=== PATIENT | female | born 1940 | race Caucasian/White ===

== ENCOUNTER 2016-05-12 17:23 | Inpatient (IN) | payer OTHER ==
[2016-05-12 18:49] LABS: BASOPHIL 0.6 % (0-2.0); EOSINOPHIL 0.9 % (0-4.5); MCH 29.3 pg (25.7-33.7); MCHC 33.2 g/dl (32.0-36.0); MEAN CELL VOLUME 88.2 fl (80-96); MEAN PLT VOLUME 8.1 fl (7.5-11.1); NEUTROPHILS 60.1 % (42.8-82.8); PLATELET COUNT 210 K/MM3 (134-434); WHITE BLOOD COUNT 4.2 K/mm3 (4.0-10.0)
[2016-05-12] MEDS ORDERED: morphine CARPU-JECT 2 MG/1 ML DISP.SYRIN IVPUSH ONE (18:57)
[2016-05-12 18:58] LABS: URINE APPEARANCE SLCLOUDY; URINE BILIRUBIN NEGATIVE (NEGATIVE); URINE COLOR YELLOW; URINE GLUCOSE (UA) NEGATIVE (NEGATIVE); URINE KETONE TRACE (NEGATIVE); URINE LEUK ESTERASE NEGATIVE (NEGATIVE); URINE NITRITE NEGATIVE (NEGATIVE); URINE PROTEIN NEGATIVE (NEGATIVE); URINE UROBILINOGEN NEGATIVE E.U./dl (0.2-1.0)
[2016-05-12 19:00] LABS: INR 1.13 (0.82-1.09); PROTHROMBIN TIME (PATIENT) 12.5 SEC (9.98-11.88); URINE BLOOD 2+ (NEGATIVE)
[2016-05-12 19:02] LABS: URINE HYALINE CAST 3 /lpf; URINE MUCUS MODERATE; URINE RBC 18 /hpf (0-3); URINE WBC 2 /hpf (3-5)
[2016-05-12 19:11] LABS: ALBUMIN 3.5 g/dl (3.4-5.0); ANION GAP 8 (8-16); BILIRUBIN,TOTAL 0.6 mg/dL (0.2-1.0); CALCIUM 8.3 mg/dL (8.5-10.1); CO2 25 mmol/L (21-32); CREATININE 0.5 mg/dL (0.55-1.02); GLUCOSE,RANDOM 141 mg/dL (74-106); SGOT/AST 18 U/L (15-37); SGPT/ALT 31 U/L (12-78); TOT PROT 6.6 g/dl (6.4-8.2)
[2016-05-12] MEDS ORDERED: morphine CARPU-JECT 2 MG/1 ML DISP.SYRIN ONE (19:11)
[2016-05-12 19:12] LABS: ALK PHOS 40 U/L (45-117)
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
[2016-05-12] MEDS ORDERED: ACETAMINOPHEN 1000 MG/100 ML VIAL (NON FORMULARY) IVPB PRN (22:47)
[2016-05-12] MEDS ORDERED: SODIUM CHLORIDE 1,000 ML IV SCH (23:45)
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
[2016-05-13 00:02] VITALS: BMI 25.0
[2016-05-13] MEDS ORDERED: amLODIPine BESYLATE 5 MG TABLET (FP) PO SCH ×2 (01:00→10:00)
[2016-05-13] MEDS: morphine CARPU-JECT 4 MG/1 ML DISP.SYRIN IVPUSH PRN ×4 (01:31→23:40)
[2016-05-13 08:46] LABS: MCH 30.3 pg (25.7-33.7); MCHC 34.1 g/dl (32.0-36.0); MEAN CELL VOLUME 88.9 fl (80-96); MEAN PLT VOLUME 8.2 fl (7.5-11.1); PLATELET COUNT 164 K/MM3 (134-434); RDW 12.8 % (11.6-15.6); WHITE BLOOD COUNT 4.7 K/mm3 (4.0-10.0)
[2016-05-13 09:08] LABS: INR 1.22 (0.82-1.09); PROTHROMBIN TIME (PATIENT) 13.5 SEC (9.98-11.88)
[2016-05-13 09:10] LABS: CALCIUM 7.9 mg/dL (8.5-10.1); CREATININE 0.4 mg/dL (0.55-1.02)
--- NOTE | 2016-05-13 09:51 | EKG ---
Test Reason : Blood Pressure : / mmHG Vent. Rate : 063 BPM Atrial Rate : 063 BPM P-R Int : 158 ms QRS Dur : 082 ms QT Int : 448 ms P-R-T Axes : 064 029 009 degrees QTc Int : 458 ms NORMAL SINUS RHYTHM NORMAL ECG WHEN COMPARED WITH ECG OF 28-JUL-2015 07:35, VENT. RATE HAS DECREASED BY 51 BPM T WAVE VARIATION Confirmed by HUNTER DAILEY MD ([id number]) on 05/13/2016 9:50:46 AM Referred By: Overread By: HUNTER DAILEY MD
--- NOTE | 2016-05-13 12:17 | CONSULT ---
Consult - text type - Consultation Consultation Note: FULL CONSULT DICTATED IMP: LEFT IT HIP FX PLAN: LEFT HIP GAMMA NAILING TODAY
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
[2016-05-13] MEDS ORDERED: MIDAZOLAM HCL 2 MG/2 ML SINGLE DOSE VIAL ONE (13:01)
[2016-05-13] MEDS ORDERED: ceFAZolin SODIUM 1 GM VIAL ONE (13:15)
[2016-05-13] MEDS ORDERED: ceFAZolin SODIUM 1 GM VIAL IVPB ONE (13:19)
--- NOTE | 2016-05-13 13:34 | OP ---
Operative Note - Note: Operative Date: 05/13/16 ([facility]) Pre-Operative Diagnosis: left IT fx Operation: left IM gamma nail Post-Operative Diagnosis: Same as Pre-op Surgeon: Cresencio Barcenas Anesthesiologist/WASTEWATER TECHNICIAN: Sonia Pedraza Anesthesia: General Estimated Blood Loss (mls): 50 Operative Report Dictated: Yes
[2016-05-13] MEDS ORDERED: ONDANSETRON 4 MG/2 ML VIAL IVPUSH PRN (14:03)
--- NOTE | 2016-05-13 14:05 | CONS ---
DATE OF CONSULTATION: 05/13/2016 HISTORY: The patient is a 75-year-old female complaining of left hip pain and inability to ambulate. The patient has had a history of hip fracture in the past on the contralateral [place] appears to be some Toth [place]. Patient is not complaining of any pain in that location. PHYSICAL EXAMINATION: The left lower extremity is shortened and externally rotated. Marked increased pain with internal and external rotation of the hip. Good motion of the knee, ankle, and toes. Otherwise, neurovascularly intact. X-rays show basicervical/left intertrochanteric hip fracture on the left side. On the right side shows some old Toth pins for a femoral neck fracture. Appears slightly possibly penetrating the right hip joint with some DJD of that joint. Also CAT scan revealed the patient had a vertebroplasty at it looks like L1 or L2. IMPRESSION: Left intertrochanteric hip fracture acute. PLAN: Risks, benefits, and alternatives were discussed with the patient and reviewed with radiology therapist. The patient will be booked for the operating room today for left gamma nailing. LUCINDA GRIDER M.D. [id number]
[2016-05-13] MEDS ORDERED: SODIUM CHLORIDE 1,000 ML IV SCH (14:12)
--- NOTE | 2016-05-13 14:18 | SPEC ---
DATE OF SURGERY: 05/13/2016 OPERATION: Left gamma nailing. PREOPERATIVE DIAGNOSIS: Left intertrochanteric hip fracture. POSTOPERATIVE DIAGNOSIS: Left intertrochanteric hip fracture. SURGEON: Cresencio Barcenas M.D. ANESTHESIA: Spinal. CLOSURE: A short gamma nail with appropriate interlocks. No. 0 Vicryl for fascia, 2-0 for subcutaneous, krysten for skin. ESTIMATED BLOOD LOSS: 100 mL. COMPLICATIONS: None. CONDITION: Recovery room in stable condition. DESCRIPTION OF OPERATIVE PROCEDURE: The patient was taken to the operating room. Spinal anesthesia was administered by the anesthesiologist. IV antibiotic prophylaxis was administered prior to the case. Patient was fastened to the fracture table with all prominences well padded. The left hip fracture was reduced and confirmation of excellent reduction from the AP and lateral planes was established using the image intensifier. A small 1-inch incision was made at the greater tip of the greater trochanter. Hemostasis was achieved with Bovie cautery. Sharp dissection was carried through the fascia. The K-wire was drilled from the tip of the greater trochanter past the fracture, into the intramedullary canal. Proper placement confirmed the AP and lateral planes by using the image intensifier. This was overreamed with a proximal reamer using the tissue protector to protect the soft tissue in the region. A short gamma nail was then malletted down into place into the intramedullary canal to the appropriate level. Using the outrigger and a small stab incision laterally, a Guidewire was drilled from one aspect of the femur through the femoral neck into the femoral head. Proper placement was confirmed of the AP and lateral planes using image intensifier. The wire was measured for length and was overreamed with a triple reamer and was screwed with the appropriate-length lag screw. Confirmation of appropriate depth was confirmed in the AP and lateral planes by using image intensifier. Traction was reduced. The compression device was used to compress the fracture and a screw was placed from above in a dynamic fashion. Again, using the outrigger and a small stab incision laterally, the distal locking screw was placed by drilling and an appropriate-sized screw. The outrigger was removed. Confirmation of excellent reduction was confirmed in the AP and lateral planes by using image intensifier with excellent position of the hardware. All incisions were irrigated with copious amounts of irrigation. The fascia was closed with 0 Vicryl, 2-0 for subcutaneous and 3-0 Monocryl subcuticular for skin. A sterile pressure dressing was applied. The patient was awakened from anesthesia and transferred to recovery room in stable condition. No complications. Estimated blood loss less than 100 mL. CRESENCIO BARCENAS M.D. [id number]
[2016-05-13] MEDS ORDERED: POTASSIUM CHLORIDE 40 MEQ/30 ML UNIT DOSE CUP PO ONE (15:58)
[2016-05-13] MEDS ORDERED: CEFAZOLIN 1 GM/D5W 50 ML IVPB SCH (21:00)
[2016-05-13] MEDS: CEFAZOLIN 1 GM/D5W 50 ML IVPB SCH (21:18)
[2016-05-13] MEDS: ACETAMINOPHEN 325 MG TABLET (FP) PO PRN (21:42)
[2016-05-14] MEDS: CEFAZOLIN 1 GM/D5W 50 ML IVPB SCH (04:24)
[2016-05-14] MEDS: ACETAMINOPHEN 325 MG TABLET (FP) PO PRN ×2 (04:25→21:54)
[2016-05-14] MEDS: morphine CARPU-JECT 4 MG/1 ML DISP.SYRIN IVPUSH PRN (05:46)
[2016-05-14 07:13] LABS: MCH 30.5 pg (25.7-33.7); MCHC 34.4 g/dl (32.0-36.0); MEAN CELL VOLUME 88.7 fl (80-96); MEAN PLT VOLUME 8.3 fl (7.5-11.1); PLATELET COUNT 169 K/MM3 (134-434); RDW 12.8 % (11.6-15.6); WHITE BLOOD COUNT 6.9 K/mm3 (4.0-10.0)
[2016-05-14 07:38] LABS: CALCIUM 7.8 mg/dL (8.5-10.1); CREATININE 0.4 mg/dL (0.55-1.02)
--- NOTE | 2016-05-14 08:19 | PN ---
Progress Note (short form) - Note Progress Note: ANESTHESIA POST-OP CHECK 75F s/p left hip gamma nail under spinal anesthesia, POD #1. No acute complaints, denies N/V, tolerating PO, jacome in place. Pain 6-7/10 and tolerable. Denies backache, headache, numbness, weakness. Vital Signs Temperature 100.2 F H 05/14/16 06:00 Pulse Rate 91 H 05/14/16 06:00 Respiratory Rate 20 05/14/16 06:00 Blood Pressure 142/68 05/14/16 06:00 O2 Sat by Pulse Oximetry (%) 96 05/13/16 15:57 Active Medications Acetaminophen (Tylenol -) 650 mg PO Q4H PRN PRN Reason: FEVER OR PAIN Last Admin: 05/14/16 04:25 Dose: 650 mg Amlodipine Besylate (Norvasc -) 5 mg PO DAILY CHRISTY Enoxaparin Sodium (Lovenox -) 40 mg SQ DAILY CHRISTY Fentanyl (Sublimaze Injection -) 25 mcg IVPUSH [id number] PRN PRN Reason: PAIN Stop: 05/16/16 14:04 Morphine Sulfate (Morphine Injection -) 4 mg IVPUSH Q6H PRN PRN Reason: PAIN Last Admin: 05/14/16 05:46 Dose: 4 mg Potassium Chloride (Kcl Oral Solution -) 40 meq PO ONCE ONE Stop: 05/14/16 08:00 Gen: awake, alert Ext: No apparent motor or sensory deficits of bilateral lower ext. No apparent anesthesia complications. Pain well controlled. Continue management as per primary team.
[2016-05-14] MEDS ORDERED: POTASSIUM CHLORIDE 40 MEQ/30 ML UNIT DOSE CUP PO ONE (08:45)
--- NOTE | 2016-05-14 09:42 | PN ---
Progress Note (short form) - Note Progress Note: Ortho Pt seen and examined s/p left IM gamma nail pod #1 Selected Entries 05/14/16 09:29 Temperature 99.0 F Pulse Rate 91 H Respiratory 20 Rate Blood Pressure 138/65 Laboratory Tests 05/14/16 06:00 WBC 6.9 D Hgb 9.1 L D Hct 26.4 L D Plt Count 169 dressing saturated, calf soft, nt nvi a/p Dressing changed monitor h/h PT dvt ppx pain control d/c planning
[2016-05-14] MEDS: ENOXAPARIN NA (PORCINE) 40 MG/0.4 ML DISP.SYRIN SQ SCH (09:51)
[2016-05-14] MEDS: amLODIPine BESYLATE 5 MG TABLET (FP) PO SCH (09:52)
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
[2016-05-14] MEDS ORDERED: ENOXAPARIN NA (PORCINE) 30 MG/0.3 ML DISP.SYRIN SQ SCH (10:00)
--- NOTE | 2016-05-14 11:31 | MSN ---
Progress Note (short form) - Note Progress Note: Pt is a Irish speaking (speaks minimal [place] Islander) 75 yo F with PMHx of HTN, GERD , OA, who was admitted for acute L hip fracture. Pt is POD1 s/p L hip gamma nailing (05/13). Pt was seen and examined bedside this morning. Pt was resting comfortably and eating breakfast. She denies any chest pain, difficulty breathing, or pain in her legs. Pt was febrile at 9PM last night with a temperature of 101.9F, but has since then remained afebrile at 100.2F after given tylenol PRN. Pt has no complaints at this time. Her leg hip dressing was changed this morning. Surgical wound appears dry and intact. Left hip fracture - F/U with PT - Continue to monitor vitals, CBC. - DVT PPX Hypokalemia - Check magnesium, and replete both if needed. Postop fever - F/U CXR - Urine/blood culture - F/U urinalysis (light pink urine in jacome bag)
[2016-05-14 12:30] LABS: URINE APPEARANCE SLCLOUDY; URINE BILIRUBIN NEGATIVE (NEGATIVE); URINE COLOR YELLOW; URINE GLUCOSE (UA) 1+ (NEGATIVE); URINE KETONE TRACE (NEGATIVE); URINE NITRITE NEGATIVE (NEGATIVE); URINE UROBILINOGEN NEGATIVE E.U./dl (0.2-1.0)
[2016-05-14 12:53] LABS: URINE BLOOD 2+ (NEGATIVE); URINE LEUK ESTERASE 1+ (NEGATIVE); URINE PROTEIN 2+ (NEGATIVE)
[2016-05-14 12:54] LABS: URINE HYALINE CAST 4 /lpf; URINE MUCUS MANY; URINE RBC 117 /hpf (0-3); URINE WBC 25 /hpf (3-5)
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
[2016-05-15] MEDS: ACETAMINOPHEN 325 MG TABLET (FP) PO PRN ×2 (01:59→22:04)
[2016-05-15 07:46] LABS: BASOPHIL 0.2 % (0-2.0); EOSINOPHIL 0.4 % (0-4.5); MCH 30.4 pg (25.7-33.7); MCHC 34.6 g/dl (32.0-36.0); MEAN CELL VOLUME 87.9 fl (80-96); MEAN PLT VOLUME 8.4 fl (7.5-11.1); NEUTROPHILS 73.7 % (42.8-82.8); PLATELET COUNT 197 K/MM3 (134-434); RDW 12.8 % (11.6-15.6); WHITE BLOOD COUNT 8.8 K/mm3 (4.0-10.0)
[2016-05-15 08:13] LABS: CALCIUM 7.8 mg/dL (8.5-10.1); CREATININE 0.4 mg/dL (0.55-1.02); MAGNESIUM 1.9 mg/dL (1.8-2.4)
--- NOTE | 2016-05-15 10:17 | PN ---
Progress Note (short form) - Note Progress Note: Ortho Pt seen and examined s/p left IM gamma nail pod #2 Selected Entries 05/15/16 06:00 Temperature 98.9 F Pulse Rate 90 Respiratory 20 Rate Blood Pressure 158/74 Laboratory Tests 05/15/16 06:35 WBC 8.8 Hgb 9.1 L Hct 26.3 L Plt Count 197 dressing c/d/i, calf soft, nt nvi a/p PT dvt ppx pain control d/c planning
[2016-05-15] MEDS: ENOXAPARIN NA (PORCINE) 40 MG/0.4 ML DISP.SYRIN SQ SCH (10:23)
[2016-05-15] MEDS: amLODIPine BESYLATE 5 MG TABLET (FP) PO SCH (10:23)
[2016-05-15] MEDS: SENNOSIDES 8.6MG TABLET (FP) PO SCH ×2 (12:03→21:50)
[2016-05-15] MEDS: DOCUSATE SODIUM 100 MG CAPSULE (FP) PO SCH (12:03)
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
[2016-05-16 08:49] LABS: MCH 30.7 pg (25.7-33.7); MEAN CELL VOLUME 87.6 fl (80-96); MEAN PLT VOLUME 8.6 fl (7.5-11.1); PLATELET COUNT 252 K/MM3 (134-434); RDW 13.1 % (11.6-15.6); WHITE BLOOD COUNT 8.8 K/mm3 (4.0-10.0)
--- NOTE | 2016-05-16 09:23 | PN ---
Progress Note (short form) - Note Progress Note: Ortho Pt seen and examined s/p left IM gamma nail pod #3 Selected Entries 05/16/16 06:00 Temperature 98.6 F Pulse Rate 80 Respiratory 20 Rate Blood Pressure 134/58 Laboratory Tests 05/16/16 07:00 WBC 8.8 Hgb 8.9 L Hct 25.4 L Plt Count 252 D dressing c/d/i, + ecchymosis in groin and hip, calf soft, nt nvi a/p PT dvt ppx pain control d/c to snf when bed available
[2016-05-16] MEDS: amLODIPine BESYLATE 5 MG TABLET (FP) PO SCH (10:12)
[2016-05-16] MEDS: ENOXAPARIN NA (PORCINE) 40 MG/0.4 ML DISP.SYRIN SQ SCH (10:12)
[2016-05-16] MEDS: DOCUSATE SODIUM 100 MG CAPSULE (FP) PO SCH (10:12)
[2016-05-16] MEDS: SENNOSIDES 8.6MG TABLET (FP) PO SCH (10:12)
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
[2016-05-16 14:30] VITALS: BP 131/50; PULSE 82; TEMP 98.1
== END 2016-05-16 20:07 | DRG 481 ==
LOC: JER 17:23 → JERBED 22:06 → J6S 22:51
PROVIDERS: ADMIT Internal Medicine; ATTEND Internal Medicine
PROC: 0QS704Z Reposition Left Upper Femur with Internal Fixation Device, Open Approach (ICD-10-PCS; principal; 2016-05-13 13:00)
DX: S72.142A Displaced intertrochanteric fracture of left femur, initial encounter for closed fracture (principal); J98.11 Atelectasis; I10 Essential (primary) hypertension; E87.6 Hypokalemia; R50.82 Postprocedural fever; K21.9 Gastro-esophageal reflux disease without esophagitis; Y99.8 Other external cause status; V49.3XXA Car occupant (driver) (passenger) injured in unspecified nontraffic accident, initial encounter; Y93.89 Activity, other specified; Y92.89 Other specified places as the place of occurrence of the external cause
CPT/HCPCS: 36415; 70450-TC; 71010-TC; 72125-TC; 73523-TC; 76000-TC; 80048; 80053; 81003; 81015; 83735; 85025; 85027; 85610; 85730; 86850; 86900; 86901; 87040; 87086; 93005; 93010; 94010; 94760; 97116-GP; 97163-GP; 99284-25

== ENCOUNTER 2016-05-31 21:34 | Emergency (ER) | payer OTHER ==
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
[2016-05-31 21:50] VITALS: TEMP 97.9; BMI 27.4
[2016-05-31 22:50] LABS: BASOPHIL 1.5 % (0-2.0); MCH 30.9 pg (25.7-33.7); MCHC 33.5 g/dl (32.0-36.0); MEAN PLT VOLUME 7.7 fl (7.5-11.1); NEUTROPHILS 62.4 % (42.8-82.8); PLATELET COUNT 310 K/MM3 (134-434); RDW 15.9 % (11.6-15.6); WHITE BLOOD COUNT 5.5 K/mm3 (4.0-10.0)
[2016-05-31 23:08] LABS: INR 1.21 (0.82-1.09); PROTHROMBIN TIME (PATIENT) 13.4 SEC (9.98-11.88)
[2016-05-31 23:13] LABS: ALK PHOS 164 U/L (45-117); ANION GAP 9 (8-16); BILIRUBIN,TOTAL 0.5 mg/dL (0.2-1.0); CALCIUM 9.1 mg/dL (8.5-10.1); CO2 28 mmol/L (21-32); CREATININE 0.5 mg/dL (0.55-1.02); GLUCOSE,RANDOM 123 mg/dL (74-106); SGOT/AST 11 U/L (15-37); SGPT/ALT 11 U/L (12-78); TOT PROT 6.5 g/dl (6.4-8.2)
[2016-05-31] MEDS ORDERED: ENOXAPARIN NA (PORCINE) 60 MG/0.6 ML DISP.SYRIN SQ SCH (23:45)
[2016-06-01] MEDS ORDERED: CLINDAMYCIN HCL 300 MG CAPSULE PO ONE (00:52)
[2016-06-01] MEDS ORDERED: ENOXAPARIN NA (PORCINE) 60 MG/0.6 ML DISP.SYRIN SQ ONE (01:01)
[2016-06-01] MEDS ORDERED: CLINDAMYCIN HCL 150 MG CAPSULE (FP) ONE (01:01)
[2016-06-01 01:33] VITALS: BP 132/76; PULSE 78
--- NOTE | 2016-06-01 23:25 | EKG ---
Test Reason : Blood Pressure : / mmHG Vent. Rate : 075 BPM Atrial Rate : 075 BPM P-R Int : 154 ms QRS Dur : 076 ms QT Int : 392 ms P-R-T Axes : 058 029 023 degrees QTc Int : 437 ms NORMAL SINUS RHYTHM NORMAL ECG WHEN COMPARED WITH ECG OF 12-MAY-2016 18:30, NO SIGNIFICANT CHANGE WAS FOUND Confirmed by HUNTER DAILEY MD ([id number]) on 06/01/2016 11:25:06 PM Referred By: Confirmed By:HUNTER DAILEY MD
== END 2016-06-01 01:33 ==
LOC: JER 21:34
PROC: 3E013GC Introduction of Other Therapeutic Substance into Subcutaneous Tissue, Percutaneous Approach (ICD-10-PCS; principal; 2016-05-31)
DX: I82.412 Acute embolism and thrombosis of left femoral vein (principal); I82.432 Acute embolism and thrombosis of left popliteal vein; L03.116 Cellulitis of left lower limb; I10 Essential (primary) hypertension; K21.9 Gastro-esophageal reflux disease without esophagitis; M19.90 Unspecified osteoarthritis, unspecified site
CPT/HCPCS: 36415; 80053; 85025; 85610; 87040; 93005; 93010; 93971-TC; 96372; 99284-25

== ENCOUNTER 2016-07-10 18:06 | Emergency (ER) | payer OTHER ==
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
[2016-07-10 18:36] VITALS: BP 141/78; PULSE 80; TEMP 97.8; BMI 27.4
--- NOTE | 2016-07-10 20:58 | PDOC ---
History of Present Illness - General Chief Complaint: Pain Stated Complaint: LEG PAIN Time Seen by Provider: 07/10/16 18:22 History Source: Patient Exam Limitations: No Limitations, Language Barrier - History of Present Illness Initial Comments: 07/10/16 20:54 TRANSLATING; cc CONITINUED PAIN LEFT LOWER LEG AND ANKLE POST FALL LAST WEEK Occurred: reports: last week Severity: reports: moderate Pain Location: reports: lower extremity Method of Injury: Yes: direct blow, fall Past History - Past Medical History Allergies/Adverse Reactions: Allergies Allergy/AdvReac Type Severity Reaction Status Date / Time Penicillins Allergy Hives Verified 07/10/16 18:26 Home Medications: Ambulatory Orders Amlodipine Besylate 5 mg PO ASDIR 01/31/16 Acetaminophen [Tylenol .Regular Strength -] 650 mg PO Q4H PRN #30 tablet Docusate Sodium [Colace -] 100 mg PO DAILY PRN #10 capsule 05/16/16 Enoxaparin [Lovenox -] 40 mg SQ DAILY #28 disp.syrin MDD 40 05/16/16 Morphine Injection - [Morphine Injection 4 mg/1 mL -] 4 mg IVPUSH Q6H PRN #0 disp.syrin MDD 20 05/16/16 Sennosides [Senna -] 1 tab PO HS PRN #10 tablet 05/16/16 Clindamycin [Cleocin -] 300 mg PO Q6HPO #28 capsule 06/01/16 Anemia: No Asthma: No Cancer: No Cardiac Disorders: No CVA: No COPD: No CHF: No Dementia: No Diabetes: No Dialysis: No GI Disorders: Yes (ANOREXIA) Disorders: No HTN: Yes Hypercholesterolemia: No Kidney Stones: No Liver Disease: No Psychiatric Problems: No Seizures: No Thyroid Disease: No - Surgical History Abdominal Surgery: No Appendectomy: No Cardiac Surgery: No Cholecystectomy: No Lung Surgery: No Neurologic Surgery: No Orthopedic Surgery: Yes (ORIF RIGHT HIP FRACTURE LEFT KNEE REPLACEMENT) - Immunization History Immunization Up to Date: Yes - Psycho/Social/Smoking Cessation Hx Anxiety: No Suicidal Ideation: No Smoking Status: No Smoking History: Never smoked Have you smoked in the past 12 months: No Number of Cigarettes Smoked Daily: 0 Information on smoking cessation initiated: No Hx Alcohol Use: No Drug/Substance Use Hx: No Substance Use Type: None Hx Substance Use Treatment: No Review of Systems - Review of Systems Constitutional: No: Symptoms Reported HEENTM: No: Symptoms Reported Respiratory: No: Symptoms reported, Cough Cardiac (ROS): No: Symptoms Reported : No: Symptoms Reported Musculoskeletal: Yes: Joint Pain, Joint Swelling *Physical Exam - Vital Signs Last Vital Signs Temp Pulse Resp BP Pulse Ox 97.8 F 80 18 141/78 100 07/10/16 18:26 07/10/16 18:26 07/10/16 18:26 07/10/16 18:26 07/10/16 18:26 - Physical Exam HEENT: positive: TMs Normal, Pharynx Normal Neck: positive: Supple. negative: Tender, Rigid Respiratory/Chest: positive: Lungs Clear Musculoskeletal: positive: Other (TENDER LATERAL MALL. WITH LATERAL ANKLE AND LOWER TIB/ FIBULAR sts AND TENDERNESS) Medical Decision Making - Medical Decision Making 07/10/16 20:56 NO FXS ON XRAYS; WILL REFER TO DR ALEXIS NEXT WEEK *DC/Admit/Observation/Transfer Diagnosis at time of Disposition: Strain of left ankle Qualifiers: Encounter type: initial encounter Qualified Code(s): S96.912A - Strain of unspecified muscle and tendon at ankle and foot level, left foot, initial encounter - Discharge Dispostion Disposition: HOME Condition at time of disposition: Stable Admit: No - Referrals Referrals: Nae Galeas [Primary Care Provider] - Rian Alexis MD [Staff Physician] - - Patient Instructions Additional Instructions: PLEASE SEE DR ALEXIS NEXT WEEK IF NO BETTER; PLEASE ELEVATE LEG MUCH POSSIBLE; NO WARM WATER SOAKING
== END 2016-07-10 21:08 | disposition home or self-care (01) ==
LOC: JERFT 18:06 → JER 18:06 → JERFT 21:08
DX: S96.912A Strain of unspecified muscle and tendon at ankle and foot level, left foot, initial encounter (principal); W18.30XA Fall on same level, unspecified, initial encounter; Y93.9 Activity, unspecified; Y92.9 Unspecified place or not applicable; Z96.652 Presence of left artificial knee joint; R63.0 Anorexia; I10 Essential (primary) hypertension
CPT/HCPCS: 73590-TC-LT; 73610-TC-LT; 73630-TC-LT; 99281-25

== ENCOUNTER 2017-05-19 18:52 | Emergency (ER) | payer OTHER ==
[2017-05-19 18:58] VITALS: BP 156/72; PULSE 81; TEMP 98.8; BMI 26.5
--- NOTE | 2017-05-19 19:00 | PDOC ---
Rapid Medical Evaluation Time Seen by Provider: 05/19/17 18:54 Medical Evaluation: Allergies Allergy/AdvReac Type Severity Reaction Status Date / Time Penicillins Allergy Hives Verified 07/10/16 18:26 05/19/17 18:54 The patient presents with a chief complaint of: L leg pain for one week. PCP Dr. Damaris Bose I have performed a brief in-person evaluation of this patient; Pertinent physical exam findings: Afebrile, Cellulitis to L lower extremity, warm to the touch. Multiple abrasions on the L leg I have ordered the following: CBC, CMP, Blood cultures The patient will proceed to the ED for further evaluation.
[2017-05-19 20:26] LABS: BASO % 1.4 % (0-2.0); EOS % 3.5 % (0-4.5); HEMATOCRIT 41.1 % (32.4-45.2); HEMOGLOBIN 13.9 GM/dL (10.7-15.3); LYMPH % 19.8 % (8-40); MCH 30.3 pg (25.7-33.7); MCHC 33.8 g/dl (32.0-36.0); MEAN CELL VOLUME 89.7 fl (80-96); MEAN PLT VOLUME 7.7 fl (7.5-11.1); MONO % 8.3 % (3.8-10.2); PLATELET COUNT 259 K/MM3 (134-434); RBC 4.58 M/mm3 (3.60-5.2); RDW 13.2 % (11.6-15.6); WHITE BLOOD COUNT 6.5 K/mm3 (4.0-10.0)
[2017-05-19 20:51] LABS: ALBUMIN 3.7 g/dl (3.4-5.0); ALK PHOS 62 U/L (45-117); ANION GAP 6 (8-16); BILIRUBIN,TOTAL 0.3 mg/dL (0.2-1.0); BLOOD UREA NITROGEN 15 mg/dL (7-18); CHLORIDE 110 mmol/L (98-107); CO2 26 mmol/L (21-32); CREATININE 0.5 mg/dL (0.55-1.02); GLUCOSE,RANDOM 137 mg/dL (74-106); POTASSIUM 4.4 mmol/L (3.5-5.1); SGOT/AST 7 U/L (15-37); SGPT/ALT 20 U/L (12-78); SODIUM 142 mmol/L (136-145); TOT PROT 7.2 g/dl (6.4-8.2)
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
[2017-05-19] MEDS ORDERED: CLINDAMYCIN HCL 300 MG CAPSULE PO ONE (23:59)
[2017-05-20] MEDS ORDERED: BACITRACIN 15 GM TUBE TOPICAL OINTMENT TP ONE
[2017-05-20] MEDS ORDERED: BACITRACIN 0.9 GM PACKET ONE (00:18)
[2017-05-20] MEDS ORDERED: CLINDAMYCIN HCL 150 MG CAPSULE (FP) ONE (00:19)
[2017-05-20] MEDS ORDERED: BACITRACIN 15 GM TUBE TOPICAL OINTMENT ONE (00:24)
== END 2017-05-20 00:57 | disposition home or self-care (01) ==
LOC: JER 18:52
DX: R60.0 Localized edema (principal); S80.812A Abrasion, left lower leg, initial encounter; X58.XXXA Exposure to other specified factors, initial encounter; Y93.89 Activity, other specified; Y92.038 Other place in apartment as the place of occurrence of the external cause; I10 Essential (primary) hypertension; K21.9 Gastro-esophageal reflux disease without esophagitis; M19.90 Unspecified osteoarthritis, unspecified site; Z87.42 Personal history of other diseases of the female genital tract
CPT/HCPCS: 36415; 80053; 85025; 87040; 93971-TC; 99281-25

== ENCOUNTER 2018-01-29 15:11 | Emergency (ER) | payer OTHER ==
[2018-01-29 15:19] VITALS: TEMP 99.5; BMI 29.2
--- NOTE | 2018-01-29 15:19 | PDOC ---
Rapid Medical Evaluation Time Seen by Provider: 01/29/18 15:17 Medical Evaluation: Allergies Allergy/AdvReac Type Severity Reaction Status Date / Time Penicillins Allergy Hives Verified 07/10/16 18:26 01/29/18 15:17 I have performed a brief in-person evaluation of this patient. The patient presents with a chief complaint of: LLE swelling/pain x6 weeks. Red any sob/cp,n/v, hemoptysis Pertinent physical exam findings: LLE swelling I have ordered the following: cbc/cmp/d dimer. vasdc duplex The patient will proceed to the ED for further evaluation.
[2018-01-29 15:56] LABS: ALBUMIN 3.6 g/dl (3.4-5.0); ALK PHOS 63 U/L (45-117); ANION GAP 8 MMOL/L (8-16); BILIRUBIN,TOTAL 0.5 mg/dL (0.2-1); BLOOD UREA NITROGEN 12 mg/dL (7-18); CALCIUM 9.1 mg/dL (8.5-10.1); CHLORIDE 108 mmol/L (98-107); CO2 25 mmol/L (21-32); CREATININE 0.5 mg/dL (0.55-1.3); GLUCOSE,RANDOM 145 mg/dL (74-106); POTASSIUM 3.9 mmol/L (3.5-5.1); SGOT/AST 9 U/L (15-37); SGPT/ALT 21 U/L (13-61); SODIUM 141 mmol/L (136-145); TOT PROT 7.2 g/dl (6.4-8.2)
--- NOTE | 2018-01-29 16:09 | PDOC ---
Attending Attestation - Resident Resident Name: James Fischer - ED Attending Attestation I have performed the following: I have examined & evaluated the patient, The case was reviewed & discussed with the resident, I agree w/resident's findings & plan, Exceptions are as noted - HPI HPI: 77 yo F history HTN, LLE DVT (diagnosed 6 weeks ago), GERD presents with swelling, pain and bruising to E. She is currently on oral anticoagulants. Denies cp, SOB, redness, fever. No trauma. - Physicial Exam PE: GENERAL: Awake, alert, and fully oriented, in no acute distress HEAD: No signs of trauma EYES: PERRLA, EOMI, sclera anicteric, conjunctiva clear ENT: Auricles normal inspection, hearing grossly normal, nares patent, oropharynx clear without exudates. Moist mucosa NECK: Normal ROM, supple, no lymphadenopathy, JVD, or masses LUNGS: Breath sounds equal, clear to auscultation bilaterally. No wheezes, and no crackles HEART: Regular rate and rhythm, normal S1 and S2, no murmurs, rubs or gallops ABDOMEN: Soft, nontender, normoactive bowel sounds. No guarding, no rebound. No masses EXTREMITIES: 1+ BLE pitting edema, venous stasis changes, varicosities. LLE with small area of skin that is darkened, depressed. Remainder of extremities with normal range of motion, no edema. No clubbing or cyanosis. No cords, erythema, or tenderness NEUROLOGICAL: Cranial nerves II through XII grossly intact. Normal speech, normal gait SKIN: Warm, Dry, normal turgor, no rashes or lesions noted. - Medical Decision Making Pt with known DVT, now with small darkened and depressed area to the L lower leg. Exam is most consistent with varicosities and stasis changes, this is likely the preceding event for a venous stasis ulcer. Will obtain ultrasound ( will not price changer in terms of the DVT which is likely still there), refer to vascular as outpatient. Of note, D-dimer was sent by [facility] provider, however, in terms of clinical presentation, would expect it to be positive.
--- NOTE | 2018-01-29 16:10 | PDOC ---
History of Present Illness - General Chief Complaint: Wound Stated Complaint: LEG WOUND Time Seen by Provider: 01/29/18 15:17 History Source: Patient Exam Limitations: Language Barrier ([id number]) - History of Present Illness Initial Comments: 01/29/18 16:13 Ms. Schwartz is a 77 yo F with a hx of HTN, osteoarthritis, GERD, and left lower extremity DVT (3 months ago) who presents to the emergency department with LLE swelling and bruising that has been ongoing for the past 6 weeks. She states the bruising has not resolved and the swelling has been increasing. She denies having pain in the LLE. She was seen by her PCP 1 week ago and was run "tests" but does not have the results and denies an ultrasound was involved. She states she is on an anticoagulant at 5 mg per day, but does not know the medication name. In addition, does not remember who treated her DVT 3 months ago, but not at [facility]. Denies the following: fever, chills, headaches, tachypnea, SOB, chest pain, abdominal pain, dysuria, hematuria, diarrhea, nausea/vomiting, recent surgeries, recent immobilization, cancer, recent travels, and melena. Pmhx: Refer to above Allergies: PCN Past History - Past Medical History Allergies/Adverse Reactions: Allergies Allergy/AdvReac Type Severity Reaction Status Date / Time Penicillins Allergy Hives Verified 01/29/18 15:19 Home Medications: Ambulatory Orders Amlodipine Besylate 5 mg PO DAILY 01/31/16 Anemia: No Asthma: No Cancer: No Cardiac Disorders: No CVA: No COPD: No CHF: No Dementia: No Diabetes: No Dialysis: No GI Disorders: Yes (ANOREXIA) Disorders: No HTN: Yes Hypercholesterolemia: No Kidney Stones: No Liver Disease: No Psychiatric Problems: No Seizures: No Thyroid Disease: No - Surgical History Abdominal Surgery: No Appendectomy: No Cardiac Surgery: No Cholecystectomy: No Lung Surgery: No Neurologic Surgery: No Orthopedic Surgery: Yes (ORIF RIGHT HIP FRACTURE LEFT KNEE REPLACEMENT) - Immunization History Immunization Up to Date: Yes - Suicide/Smoking/Psychosocial Hx Smoking Status: No Smoking History: Never smoked Have you smoked in the past 12 months: No Number of Cigarettes Smoked Daily: 0 Hx Alcohol Use: No Drug/Substance Use Hx: No Substance Use Type: None Hx Substance Use Treatment: No Review of Systems - Review of Systems Able to Perform ROS?: Yes Constitutional: No: Chills, Diaphoresis, Fever, Weakness HEENTM: No: Eye Pain, Recent change in vision, Double Vision, Nose Pain, Throat Pain, Mouth Pain Respiratory: No: Cough, Shortness of Breath, SOB with Exertion, SOB at Rest, Hemoptysis Cardiac (ROS): Yes: Edema (LLE). No: Chest Pain, Palpitations, Syncope, Chest Tightness ABD/GI: No: Abd. Pain w/ defecation, Constipated, Diarrhea, Nausea, Rectal Bleeding, Vomiting, Tarry Stools : No: Burning, Dysuria, Flank Pain, Hematuria Musculoskeletal: Yes: Muscle Pain (LLE). No: Back Pain Integumentary: Yes: Bruising (left lower extremity). No: Lumps, Pruritus, Rash Neurological: No: Headache, Numbness, Tingling, Tremors, Weakness, Ataxia Psychiatric: No: Stressors Endocrine: No: Unexplained Weight Gain Hematologic/Lymphatic: Yes: Blood Clots (last one 3 months ago) *Physical Exam - Vital Signs Last Vital Signs Temp Pulse Resp BP Pulse Ox 99.5 F 87 18 159/74 97 01/29/18 15:16 01/29/18 15:16 01/29/18 15:16 01/29/18 15:16 01/29/18 15:16 - Physical Exam General Appearance: Yes: Nourished, Appropriately Dressed HEENT: positive: EOMI, GALILEO, Normal Voice, Symmetrical Neck: positive: Trachea midline. negative: Lymphadenopathy (R), Lymphadenopathy (L) Respiratory/Chest: positive: Lungs Clear, Normal Breath Sounds. negative: Chest Tender, Respiratory Distress, Accessory Muscle Use, Labored Respiration, Rapid RR Cardiovascular: positive: Regular Rhythm, Regular Rate, S1, S2. negative: Systolic Murmur Vascular Pulses: Dorsalis-Pedis (R): 3+, Doralis-Pedis (L): 3+ Gastrointestinal/Abdominal: positive: Normal Bowel Sounds, Soft. negative: Tender Lymphatic: negative: Adenopathy Musculoskeletal: positive: Normal Inspection. negative: CVA Tenderness Extremity: positive: Normal Capillary Refill, Normal Range of Motion, Swelling ( bilateral LE on both sides without asymmetry. ), Other (hemosiderin deposit located on the lateral aspect of the LLE. Bruise consistent with possibly underlying varicosity located in the medial/inferior to gastroc. Multiple superficial varicose veins present. ). 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 Schwartz is a 77 yo F with a hx of HTN, osteoarthritis, GERD, and left lower extremity DVT (3 months ago) who presents to the emergency department with LLE swelling and bruising that has been ongoing for the past 6 weeks ddx: DVT, cellulitis, venous insufficiency (varicose veins superficial vs deep) , msk pain, pitting edema 2/2 cardiac etiology Initial vitals: Initial Vital Signs Temp Pulse Resp BP Pulse Ox 99.5 F 87 18 159/74 97 01/29/18 15:16 01/29/18 15:16 01/29/18 15:16 01/29/18 15:16 01/29/18 15:16 Work up: Laboratory Tests 01/29/18 01/29/18 01/29/18 15:31 15:31 15:31 WBC 8.2 RBC 4.61 Hgb 14.0 Hct 40.8 MCV 88.5 MCH 30.4 MCHC 34.4 RDW 13.5 Plt Count 254 MPV 7.8 Absolute Neuts (auto) 5.9 Neutrophils % 71.8 D Lymphocytes % 18.1 D Monocytes % 7.4 Eosinophils % 1.9 Basophils % 0.8 Nucleated RBC % 0 D-Dimer 823 H Sodium 141 Potassium 3.9 Chloride 108 H Carbon Dioxide 25 Anion Gap 8 BUN 12 Creatinine 0.5 L Creat Clearance w eGFR > 60 Random Glucose 145 H Calcium 9.1 Total Bilirubin 0.5 AST 9 L ALT 21 Alkaline Phosphatase 63 Total Protein 7.2 Albumin 3.6 US duplex ordered. D-dimer is 823. Age adjusted is approximately 89. The patient states she had a DVT approximately 3 months ago. A call was placed to her PCP's office ([place]) however she is not in on Fridays. Given her recent diagnosis of DVT, on anticoagulation, this is likely not the issue. She has no symptoms consistent with DVT/PE (denies tachypnea, SOB, asymmetrical swelling, pain. She is not tachycardia and currently on an anticoagulant.) Issue is likely varicose veins given the hemosiderin deposit on the lateral aspect of the left leg and the bruising consistent with a developing ulcer secondary to long standing varicose veins. *DC/Admit/Observation/Transfer Diagnosis at time of Disposition: Swelling of left lower extremity Varicose vein of leg Qualifiers: Varicose vein complication: unspecified Laterality: left Qualified Code(s): I83.92 - Asymptomatic varicose veins of left lower extremity - Discharge Dispostion Disposition: HOME Decision to Admit order: No - Referrals Referrals: Damaris Bose MD [Primary Care Provider] - Graeme Christopher MD [Staff Physician] - - Patient Instructions Additional Instructions: You have been evaluated for the swelling and bruising in the your left leg. We ran your tests and it shows your d-dimer is elevated, which is possibly due to your recent DVT. The rest of your tests are negative. Your ultrasound report shows no DVT or blood clot present in the left leg. Please keep your legs elevated by at least 30 degrees to help with the swelling. Please follow up within 24-36 hours to the referred physician, Dr. Christopher who deals with vascular pathologies. The number to call is in the discharge papers. In addition , please follow up with your primary medical doctor Dr. Bose within 24-36 hours for follow up care and management. Please return to the emergency department if your symptoms worsens, such as increased swelling or bruising. Please return to the emergency department if you experience new concerning symptoms such as shortness of breath, chest pain, weaknesses on one side, and fever/chills. Thank you. Zosta?e? oceniony pod k?tem obrz?ku i siniakw w lewej nodze. Przeprowadzili?my twoje testy i pokazuje, ?e twj D-dimer jest podniesiony, co prawdopodobnie wynika z twojej ostatniej DVT. Reszta twoich testw jest negatywna. W raporcie USG fran stwierdza si? DVT ani skrzepu krwi w lewej nodze. Utrzymuj nogi podniesione o co najmniej 30 stopni, scarlet pomc w obrz?kni?ciu. W ci?gu 2436 godzin nale?y skontaktowa? si? z leyumikozeevon Prieto, ktry zajmuje si? patologiami naczyniowymi. Numer, pod ktry nale?y zadzwoni?, znajduje si? w dokumentach zwolnienia. Ponadto nale?y skontaktowa? si? z g?wnym ender medycznym, dr Gill, w ci?gu 2436 godzin, scarlet uzyska? opiek? i leczenie uzupe?niaj?ce. 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 Zwi?kszony obrz?k lub zasinienie, nale?y wrci? do oddzia?u ratunkowego. W przypadku pojawienia si? nowych objaww , takich harper duszno??, bl w klatce piersiowej, os?abienie z jednej strony i gor ?czka / dreszcze, nale?y wrci? do oddzia?u ratunkowego. Dzi?kuj? Ci. - Post Discharge Activity
[2018-01-29 16:34] LABS: BASO % 0.8 % (0-2.0); EOS % 1.9 % (0-4.5); HEMATOCRIT 40.8 % (32.4-45.2); LYMPH % 18.1 % (8-40); MCH 30.4 pg (25.7-33.7); MCHC 34.4 g/dl (32.0-36.0); MEAN CELL VOLUME 88.5 fl (80-96); MEAN PLT VOLUME 7.8 fl (7.5-11.1); MONO % 7.4 % (3.8-10.2); NEUT % 71.8 % (42.8-82.8); PLATELET COUNT 254 K/MM3 (134-434); RBC 4.61 M/mm3 (3.60-5.2); RDW 13.5 % (11.6-15.6); WHITE BLOOD COUNT 8.2 K/mm3 (4.0-10.0)
[2018-01-29 18:13] VITALS: BP 168/89; PULSE 74
== END 2018-01-29 18:19 | disposition home or self-care (01) ==
LOC: JER 15:11
DX: I83.92 Asymptomatic varicose veins of left lower extremity (principal); R22.42 Localized swelling, mass and lump, left lower limb; Z86.718 Personal history of other venous thrombosis and embolism; I10 Essential (primary) hypertension; K21.9 Gastro-esophageal reflux disease without esophagitis
CPT/HCPCS: 36415; 80053; 85025; 85379; 93971-TC; 99283-25

== ENCOUNTER 2018-12-14 15:02 | Emergency (ER) | payer OTHER ==
[2018-12-14 15:20] VITALS: BMI 32.9
--- NOTE | 2018-12-14 15:23 | PDOC ---
Rapid Medical Evaluation Chief Complaint: Wound Time Seen by Provider: 12/14/18 15:17 Medical Evaluation: Allergies Allergy/AdvReac Type Severity Reaction Status Date / Time Penicillins Allergy Hives Verified 12/14/18 15:20 Vital Signs Temp Pulse Resp BP Pulse Ox 98.3 F 78 16 148/63 100 12/14/18 15:17 12/14/18 15:17 12/14/18 15:17 12/14/18 15:17 12/14/18 15:17 12/14/18 15:21 I have performed a brief in-person evaluation of this patient. The patient presents with a chief complaint of: sent from wound care for worsen pain of chronic venous ulcers. Pertinent physical exam findings: red swollen and tender bilateral with mult areas of scabbing/ chronic lesions I have ordered the following: cbc/ Cmp The patient will proceed to the ED for further evaluation Discharge Disposition - Diagnosis Chronic ulcer of leg - Referrals - Patient Instructions - Post Discharge Activity
[2018-12-14 17:19] LABS: BASO % 0.4 % (0-2.0); EOS % 1.5 % (0-4.5); HEMATOCRIT 42.4 % (32.4-45.2); HEMOGLOBIN 14.6 GM/dL (10.7-15.3); LYMPH % 19.1 % (8-40); MCH 30.5 pg (25.7-33.7); MCHC 34.4 g/dl (32.0-36.0); MEAN CELL VOLUME 88.6 fl (80-96); MEAN PLT VOLUME 7.4 fl (7.5-11.1); MONO % 6.3 % (3.8-10.2); NEUT % 72.7 % (42.8-82.8); PLATELET COUNT 269 K/MM3 (134-434); RBC 4.79 M/mm3 (3.60-5.2); RDW 13.6 % (11.6-15.6); WHITE BLOOD COUNT 8.6 K/mm3 (4.0-10.0)
[2018-12-14 17:52] LABS: ALBUMIN 3.8 g/dl (3.4-5.0); BILIRUBIN,TOTAL 0.7 mg/dL (0.2-1); BLOOD UREA NITROGEN 9.6 mg/dL (7-18); CALCIUM 9.6 mg/dL (8.5-10.1); CREATININE 0.6 mg/dL (0.55-1.3); POTASSIUM 4.5 mmol/L (3.5-5.1); TOT PROT 7.4 g/dl (6.4-8.2)
--- NOTE | 2018-12-14 18:20 | PDOC ---
History of Present Illness - General Chief Complaint: Wound Stated Complaint: LEG PAIN/RASH Time Seen by Provider: 12/14/18 15:17 History Source: Patient Exam Limitations: No Limitations - History of Present Illness Initial Comments: 12/14/18 18:11 77-year-old female currently receiving wound care for chronic lower extremity wounds currently on no antibiotics was sent to the ER for evaluation of red warm to touch and slightly painful dry scabs to left lower extremity. Patient denies fever, chills, drainage to area, radiation of pain. Patient with no history of diabetes or immunosuppression Timing/Duration: unsure Severity: mild Associated Symptoms: reports: other Past History - Travel Traveled outside of the country in the last 30 days: No - Past Medical History Allergies/Adverse Reactions: Allergies Allergy/AdvReac Type Severity Reaction Status Date / Time Penicillins Allergy Hives Verified 12/14/18 15:20 Home Medications: Ambulatory Orders Amlodipine Besylate 5 mg PO DAILY 01/31/16 Anemia: No Asthma: No Cancer: No Cardiac Disorders: No CVA: No COPD: No CHF: No Dementia: No Diabetes: No Dialysis: No GI Disorders: Yes ([facility]) Disorders: No HTN: Yes Hypercholesterolemia: No Kidney Stones: No Liver Disease: No Psychiatric Problems: No Seizures: No Thyroid Disease: No - Surgical History Abdominal Surgery: No Appendectomy: No Cardiac Surgery: No Cholecystectomy: No Lung Surgery: No Neurologic Surgery: No Orthopedic Surgery: Yes (ORIF RIGHT HIP FRACTURE LEFT KNEE REPLACEMENT) - Immunization History Immunization Up to Date: Yes - Suicide/Smoking/Psychosocial Hx Smoking Status: No Smoking History: Unknown if ever smoked Have you smoked in the past 12 months: No Number of Cigarettes Smoked Daily: 0 Information on smoking cessation initiated: No Hx Alcohol Use: No Drug/Substance Use Hx: No Substance Use Type: None Hx Substance Use Treatment: No Patient Lives Alone: No Lives with/in: spouse/SO Review of Systems - Review of Systems Able to Perform ROS?: Yes Constitutional: No: Symptoms Reported HEENTM: No: Symptoms Reported Respiratory: No: Symptoms reported Cardiac (ROS): No: Symptoms Reported ABD/GI: No: Symptoms Reported : No: Symptoms Reported Musculoskeletal: No: Symptoms Reported Integumentary: Yes: Erythema, Other Neurological: No: Symptoms reported Endocrine: No: Symptoms Reported Hematologic/Lymphatic: No: Symptoms Reported *Physical Exam - Vital Signs Last Vital Signs Temp Pulse Resp BP Pulse Ox 98.3 F 78 16 148/63 100 12/14/18 15:17 12/14/18 15:17 12/14/18 15:17 12/14/18 15:17 12/14/18 15:17 - Physical Exam General Appearance: Yes: Nourished, Appropriately Dressed. No: Apparent Distress HEENT: negative: Pale Conjunctivae Neck: positive: Supple Respiratory/Chest: positive: Lungs Clear, Normal Breath Sounds. negative: Respiratory Distress, Accessory Muscle Use Cardiovascular: positive: Regular Rhythm, Regular Rate. negative: Murmur Gastrointestinal/Abdominal: positive: Soft. negative: Tenderness Integumentary: positive: Swelling (1+ pitting edema to the left lower extremity with dry scabs to the lower aspect of left leg anteriorly with mild erythema surrounding areas. mild increased warmth when compared bilaterally) Neurologic: positive: Motor Strength 5/5 (ambulatory with walker) ED Treatment Course - LABORATORY CBC & Chemistry Diagram: 12/14/18 17:10 12/14/18 17:10 - ADDITIONAL ORDERS Additional order review: Laboratory Results 12/14/18 17:10 Sodium 142 Potassium 4.5 Chloride 106 Carbon Dioxide 28 Anion Gap 8 BUN 9.6 Creatinine 0.6 Est GFR (CKD-EPI)AfAm 101.90 Est GFR (CKD-EPI)NonAf 87.92 Random Glucose 140 H Calcium 9.6 Total Bilirubin 0.7 AST 8 L ALT 17 Alkaline Phosphatase 64 Total Protein 7.4 Albumin 3.8 12/14/18 17:10 RBC 4.79 MCV 88.6 MCHC 34.4 RDW 13.6 MPV 7.4 L Neutrophils % 72.7 Lymphocytes % 19.1 Monocytes % 6.3 Eosinophils % 1.5 Basophils % 0.4 - RADIOLOGY Radiology Studies Ordered: Category Date Time Status DUPLEX VASCUL US-1 LEG [US] Stat Ultrasound 12/14/18 17:10 Completed Medical Decision Making - Medical Decision Making 12/14/18 18:01 Chief complaint: Left lower extremity discomfort with redness of unknown length of time but had stated in wound Clinic and was referred to the emergency room for further evaluation patient has no other complaints Exam. Patient would try erythematous scabs to the anterior aspect of left lower leg mild increased warmth when compared bilaterally with no calf tenderness 2+ pulses vital signs stable Plan CBC, comp and ultrasound ordered if negative will discharge home with Bactrim and Keflex 12/14/18 18:23 Laboratory Tests 12/14/18 12/14/18 17:10 17:10 WBC 8.6 Hgb 14.6 Hct 42.4 Absolute Neuts (auto) 6.2 Sodium 142 Potassium 4.5 Chloride 106 Carbon Dioxide 28 Anion Gap 8 BUN 9.6 Est GFR (CKD-EPI)NonAf 87.92 Random Glucose 140 H Calcium 9.6 Total Bilirubin 0.7 AST 8 L ALT 17 Alkaline Phosphatase 64 Total Protein 7.4 Albumin 3.8 Duplex negative for deep vein thrombosis. Patient will be discharged home with antibiotics *DC/Admit/Observation/Transfer Diagnosis at time of Disposition: Chronic ulcer of leg - Discharge Dispostion Disposition: HOME Condition at time of disposition: Good - Referrals Referrals: Damaris Bose MD [Primary Care Provider] - - Patient Instructions Printed Discharge Instructions: DI for Wound Infection Additional Instructions: Please take antibiotics as prescribed. Do not pick or touch area and clean with soap and water allowing area to heal - Post Discharge Activity
[2018-12-14 18:39] VITALS: BP 138/70; PULSE 77; TEMP 97.9
== END 2018-12-14 18:39 | disposition home or self-care (01) ==
LOC: JER 15:02
DX: L97.828 Non-pressure chronic ulcer of other part of left lower leg with other specified severity (principal); I10 Essential (primary) hypertension
CPT/HCPCS: 36415; 80053; 85025; 93971-TC; 99282-25; G0463-25

== ENCOUNTER 2019-12-07 20:08 | Emergency (ER) | payer OTHER ==
--- NOTE | 2019-12-07 20:16 | PDOC ---
Rapid Medical Evaluation Time Seen by Provider: 12/07/19 20:10 Medical Evaluation: Allergies Allergy/AdvReac Type Severity Reaction Status Date / Time Penicillins Allergy Hives Verified 12/14/18 15:20 12/07/19 20:10 I have performed a brief in-person evaluation of this patient. CC: epigastric pain PE: Lungs CTAB. RRR. No m/r/g. Abd SNTND. Orders: cardiac w/u Patient to proceed to ED for further evaluation. Discharge Disposition - Diagnosis Epigastric pain - Referrals - Patient Instructions - Post Discharge Activity
[2019-12-07 20:23] VITALS: BP 162/81; PULSE 82; TEMP 98.6; BMI 30.7
[2019-12-07 21:18] LABS: BASO % 0.9 % (0-2.0); EOS % 2.4 % (0-4.5); HEMATOCRIT 43.5 % (32.4-45.2); HEMOGLOBIN 14.8 GM/dL (10.7-15.3); LYMPH % 21.6 % (8-40); MCH 30.3 pg (25.7-33.7); MEAN PLT VOLUME 8.2 fl (7.5-11.1); MONO % 8.1 % (3.8-10.2); PLATELET COUNT 257 K/MM3 (134-434); RBC 4.88 M/mm3 (3.60-5.2); RDW 13.3 % (11.6-15.6); WHITE BLOOD COUNT 6.4 K/mm3 (4.0-10.0)
--- NOTE | 2019-12-07 21:56 | PDOC ---
History of Present Illness - General Chief Complaint: Pain Stated Complaint: ABD PAIN Time Seen by Provider: 12/07/19 20:10 - History of Present Illness Initial Comments: 12/07/19 21:49 78 yo female with no significant pmh presents to the ED with worsening RUQ pain for three weeks. Pt explains she has had pain on and off but today it has been persistent and worse. She explains pain is worse with eating and sometimes better when she messages it. Pt explains pain is 6/10. Pt denies nausea, vomitting, diarrhea or hematachezia. Pt does have chronic diarrhea but had last bowel movement yesterday. Pt denies chest pain, SOB, urinary frequency, dysuria, fevers, or chills. PMH: denies PSH: Hysterctomy, knee surgery, leg surgery Med: Ex lax Allergies: penicillin Social: denies smoking drugs and alcohol PCP: Dr. Damaris Bose Past History - Medical History Allergies/Adverse Reactions: Allergies Allergy/AdvReac Type Severity Reaction Status Date / Time Penicillins Allergy Hives Verified 12/14/18 15:20 Home Medications: Ambulatory Orders Amlodipine Besylate 5 mg PO DAILY 01/31/16 Nitrofurantoin Monohyd/M-Cryst [Macrobid -] 100 mg PO BID #14 capsule 12/08/19 Anemia: No Asthma: No Cancer: No Cardiac Disorders: No CVA: No COPD: No CHF: No Dementia: No Diabetes: No Dialysis: No GI Disorders: No Disorders: No HTN: Yes Hypercholesterolemia: No Kidney Stones: No Liver Disease: No Psychiatric Problems: No Seizures: No Thyroid Disease: No - Surgical History Abdominal Surgery: No Appendectomy: No Cardiac Surgery: No Cholecystectomy: No Lung Surgery: No Neurologic Surgery: No Orthopedic Surgery: Yes (ORIF RIGHT HIP FRACTURE LEFT KNEE REPLACEMENT) - Immunization History Immunization Up to Date: Yes - Psycho-Social/Smoking History Smoking Status: No Smoking History: Never smoked Have you smoked in the past 12 months: No Number of Cigarettes Smoked Daily: 0 - Substance Abuse Hx (Audit-C & DAST Scrn) How often the patient has a drink containing alcohol: Never Score: In Men: 4 or > Positive; In Women: 3 or > Positive: 0 Screen Result (Pos requires Nsg. Audit-10AR): Negative In the last yr the pt used illegal drug/Rx for NonMed reason: No Score: Yes response is considered Positive: 0 Screen Result (Positive result requires Nsg. DAST-10): Negative Review of Systems - Review of Systems Comments:: 12/07/19 21:53 GENERAL/CONSTITUTIONAL: No fever or chills. No weakness. HEAD, EYES, EARS, NOSE AND THROAT: No change in vision.No sore throat. CARDIOVASCULAR: No chest pain or shortness of breath RESPIRATORY: No cough, wheezing, or hemoptysis. GASTROINTESTINAL: No nausea, vomiting, diarrhea. Chronic constipation. GENITOURINARY: No dysuria, frequency, or change in urination. MUSCULOSKELETAL: bilateral leg pain from prior surgeries. No neck or back pain. SKIN: No rash NEUROLOGIC: No headache, vertigo, loss of consciousness, or change in strength/sensation. ENDOCRINE: No increased thirst. No abnormal weight change ALLERGIC/IMMUNOLOGIC: skin rash on upper abdomen. *Physical Exam - Vital Signs Last Vital Signs Temp Pulse Resp BP Pulse Ox 98.6 F 82 19 162/81 95 12/07/19 20:12 12/07/19 20:12 12/07/19 20:12 12/07/19 20:12 12/07/19 20:12 - Physical Exam 12/07/19 21:57 GENERAL: Awake, alert, and fully oriented, in no acute distress HEAD: No signs of trauma, normocephalic, atraumatic EYES: PERRLA, EOMI, sclera anicteric, conjunctiva clear ENT: Auricles normal inspection, hearing grossly normal, nares patent NECK: Normal ROM, supple, no lymphadenopathy, JVD, or masses LUNGS: No distress, speaks full sentences, clear to auscultation bilaterally HEART: Regular rate and rhythm, normal S1 and S2, no murmurs, rubs or gallops, peripheral pulses normal and equal bilaterally. ABDOMEN: Soft,normoactive bowel sounds. No guarding, no rebound. No masses. Mild tenderness to palpation on RUQ. EXTREMITIES : Normal inspection, Normal range of motion, mild nonpitting edema of bilateral lower ext to calf. NEUROLOGICAL: Cranial nerves II through XII grossly intact. Normal speech, normal gait but hunched over usually walks with walker, no focal sensorimotor deficits SKIN: Warm, Dry, normal turgor, upper abdominal macular papular rash with no blanching Heart Score/ECG Review - ECG Impressions Comment:: 12/07/19 22:11 Normal sinus rhythm at 78 bpm Normal OH QRS or QT intervals T wave flattening in III similar to prior EKG ED Treatment Course - LABORATORY CBC & Chemistry Diagram: 12/07/19 20:30 12/07/19 20:30 - ADDITIONAL ORDERS Additional order review: 12/07/19 20:30 RBC 4.88 MCV 89.0 MCHC 34.0 RDW 13.3 MPV 8.2 D Neutrophils % 67.0 Lymphocytes % 21.6 Monocytes % 8.1 Eosinophils % 2.4 Basophils % 0.9 Medical Decision Making - Medical Decision Making 12/07/19 22:01 78 yo female with no pmh presents to ED with RUQ pain for three weeks. Will rule out ACS, pancreatitis, cholecystitis. For ACS got ekg,cxr, and cardiac enzymes. For pancreatitis got lipase. For cholecystitis will get labs and got POCUS which showed no thickening of GB or CBD. Signed out to PM team with plan to CT scan with IV contrast when pt lab return and also give tylenol when pt lab return. Discharge - Discharge Information Problems reviewed: Yes Clinical Impression/Diagnosis: Epigastric pain, Renal cyst UTI (urinary tract infection) Qualifiers: Urinary tract infection type: acute cystitis Hematuria presence: without hematuria Qualified Code(s): N30.00 - Acute cystitis without hematuria Condition: Stable Disposition: HOME - Additional Discharge Information Prescriptions: Nitrofurantoin Monohyd/M-Cryst [Macrobid -] 100 mg PO BID #14 capsule - Follow up/Referral Referrals: Radu Pinon MD [Staff Physician] - Damaris Bose MD [Primary Care Provider] - - Patient Discharge Instructions Additional Instructions: Today you were evaluated for abdominal pain. Your labs and urine tests do not show any problems. Your CT scan shows no problems that need immediate treatment, but you have a cyst on your right kidney that needs to be evaluated. A referral has been given to see a urologist. The cause of your pain is not known, but there is no emergency that requires you to stay in the hospital. If you experience any worsening pain, nausea, vomiting, or any other new or concerning symptoms, please return to the emergency room. - Post Discharge Activity
--- NOTE | 2019-12-07 22:01 | PDOC ---
*Physical Exam - Vital Signs Last Vital Signs Temp Pulse Resp BP Pulse Ox 98.6 F 82 19 162/81 95 12/07/19 20:12 12/07/19 20:12 12/07/19 20:12 12/07/19 20:12 12/07/19 20:12 ED Treatment Course - LABORATORY CBC & Chemistry Diagram: 12/07/19 20:30 12/07/19 20:30 - ADDITIONAL ORDERS Additional order review: 12/07/19 20:30 RBC 4.88 MCV 89.0 MCHC 34.0 RDW 13.3 MPV 8.2 D Neutrophils % 67.0 Lymphocytes % 21.6 Monocytes % 8.1 Eosinophils % 2.4 Basophils % 0.9 Medical Decision Making - Medical Decision Making 12/07/19 21:57 Signed out to me by Dr. Shipley. 78F [place]ic-speaking female here for 3 weeks RUQ abd pain worse with eating, worst today. Concerned for GB/pancreas/gastric pathology. RUQ US unremarkable for pathology in ED. Pending labs/UA. Getting CTAP with IV contrast to eval for pathology. 12/08/19 01:00 Labs notable for: - CBC WNL - CMP WNL - UA 2+ LE and bacteria consistent with UTI CTAP: no acute pathology, R renal cyst, umbilical hernia Giving Bactrim for UTI and sending home with Urology f/u and Bactrim BID for UTI treatment. No other emergent etiology for abdominal pain requiring admission. Discussed this in detail with patient with [place] [employer] chair. Understands ABx and Urology f/u. Stable to be discharged home. Discharge - Discharge Information Problems reviewed: Yes Clinical Impression/Diagnosis: Epigastric pain, Renal cyst UTI (urinary tract infection) Qualifiers: Urinary tract infection type: acute cystitis Hematuria presence: without hematuria Qualified Code(s): N30.00 - Acute cystitis without hematuria Condition: Stable Disposition: HOME - Admission No - Additional Discharge Information Prescriptions: Nitrofurantoin Monohyd/M-Cryst [Macrobid -] 100 mg PO BID #14 capsule - Follow up/Referral Referrals: Damaris Bose MD [Primary Care Provider] - Radu Pinon MD [Staff Physician] - - Patient Discharge Instructions Additional Instructions: Today you were evaluated for abdominal pain. Your labs and urine tests do not show any problems. Your CT scan shows no problems that need immediate treatment, but you have a cyst on your right kidney that needs to be evaluated. A referral has been given to see a urologist. The cause of your pain is not known, but there is no emergency that requires you to stay in the hospital. If you experience any worsening pain, nausea, vomiting, or any other new or concerning symptoms, please return to the emergency room. - Post Discharge Activity
[2019-12-07 22:07] LABS: ALBUMIN 3.6 g/dl (3.4-5.0); BILIRUBIN,TOTAL 0.5 mg/dL (0.2-1); BLOOD UREA NITROGEN 11.4 mg/dL (7-18); CALCIUM 9.4 mg/dL (8.5-10.1); CREATININE 0.7 mg/dL (0.55-1.3); MAGNESIUM 2.3 mg/dL (1.8-2.4); POTASSIUM 4.5 mmol/L (3.5-5.1); TOT PROT 7.3 g/dl (6.4-8.2)
[2019-12-07] MEDS ORDERED: LACTATED RINGERS SOLUTION 1000 ML INFUS.BAG IV ONE (22:18)
[2019-12-07] MEDS ORDERED: FAMOTIDINE 20 MG/50 ML IVPB 20 MG/50 ML MG IVPB ONE ×2 (22:18→22:32)
[2019-12-07] MEDS ORDERED: ACETAMINOPHEN 325 MG TABLET (FP) PO ONE (22:18)
--- NOTE | 2019-12-07 22:18 | PDOC ---
Documentation entered by Phuc Romo SCRIBE, acting as scribe for Leydi Freeman DO. Leydi Freeman DO: This documentation has been prepared by the Demetrius escobar Xhesika, SCRIBE, under my direction and personally reviewed by me in its entirety. I confirm that the documentation accurately reflects all work, treatment, procedures, and medical decision making performed by me. Attending Attestation - Resident Resident Name: Rickie Shipleyison - ED Attending Attestation I have performed the following: I have examined & evaluated the patient, The case was reviewed & discussed with the resident, I agree w/resident's findings & plan, Exceptions are as noted - HPI HPI: 12/07/19 21:24 The patient is a 78Y/O F, [place] speaking, with a PMH of HTN, osteoarthritis, GERD, and left lower extremity DVT who presents to the ED with RUQ discomfort [id number]. Pt states his symptoms are associated with nausea and worse with eating. The patient denies chest pain, shortness of breath, headache and dizziness. Denies fever, chills, cough, vomiting, diarrhea and constipation. Denies URI symptoms Allergies: PNC PCP: Damaris Calabrese - Physicial Exam PE: 12/07/19 21:32 GENERAL: Awake, alert, and fully oriented, in no acute distress HEAD: No signs of trauma NECK: Normal ROM, supple, no lymphadenopathy, JVD, or masses LUNGS: Breath sounds equal, clear to auscultation bilaterally. No wheezes, and no crackles HEART: Regular rate and rhythm, normal S1 and S2, no murmurs, rubs or gallops ABDOMEN: +RUQ TTP. Soft, normoactive bowel sounds. No guarding, no rebound. No masses EXTREMITIES: Normal range of motion, no edema. No clubbing or cyanosis. No cords, erythema, or tenderness NEUROLOGICAL: Cranial nerves II through XII grossly intact. SKIN: Warm, Dry, normal turgor, no rashes lesions noted. - Medical Decision Making 12/07/19 22:16 a/p: 78yo female with RUQ pain x 3 weeks assoc with eating -worse when eating -no vomiting or diarrhea -no radiation of the pain -R mid upper abd ttp without rebound or guarding, neg murphys -will send labs, pocus RUQ u/s -will monitor and reassess 12/07/19 22:18 pt with normal gb without acute pathology on ultrasound will send for ct 12/07/19 22:24 cxr clear 12/07/19 23:41 ua + 12/08/19 00:50 ct read by IOC - Envision is negative for acute pathology pt with uti will dc with oral abx 12/08/19 00:51 pt with uti, will give abx pt also with renal cyst Heart Score/ECG Review - ECG Intrepretation Comment:: 12/07/19 22:19 sinus at 78, nl axis, nl interval, no acute st/t wave findings Discharge - Discharge Information Problems reviewed: Yes Clinical Impression/Diagnosis: Epigastric pain, UTI (urinary tract infection), Renal cyst Condition: Stable - Admission No - Follow up/Referral Referrals: Damaris Bose MD [Primary Care Provider] - - Patient Discharge Instructions - Post Discharge Activity
[2019-12-07] MEDS ORDERED: ACETAMINOPHEN 325 MG TABLET (FP) ONE (22:32)
[2019-12-07 22:46] LABS: EPI CELLS 22 /uL (0-25.1); HYALINE CASTS 31 /uL (0-3.1); URINE APPEARANCE CLEAR; URINE BACTERIA 252 /uL (0-1359); URINE BILIRUBIN 1+ (NEGATIVE); URINE COLOR DK YELLOW; URINE GLUCOSE (UA) TRACE (NEGATIVE); URINE KETONE TRACE (NEGATIVE); URINE LEUK ESTERASE 2+ (NEGATIVE); URINE NITRITE NEGATIVE (NEGATIVE); URINE PROTEIN TRACE (NEGATIVE); URINE RBC 18 /uL (0-23.9); URINE WBC 267 /uL (0-25.8)
[2019-12-08] MEDS ORDERED: SULFAMETHOXAZOLE/TRIMETHOPRIM 800MG/160MG D.S. TABLET PO ONE (00:58)
[2019-12-08] MEDS ORDERED: NITROFURANTOIN MACROCRYSTAL 50 MG CAPSULE (FP) PO SCH (01:00)
[2019-12-08] MEDS ORDERED: NITROFURANTOIN MACROCRYSTAL 50 MG CAPSULE (FP) ONE ×2 (01:15)
--- NOTE | 2019-12-08 11:31 | EKG ---
Test Reason : Blood Pressure : / mmHG Vent. Rate : 078 BPM Atrial Rate : 078 BPM P-R Int : 172 ms QRS Dur : 080 ms QT Int : 402 ms P-R-T Axes : 028 022 010 degrees QTc Int : 458 ms NORMAL SINUS RHYTHM NORMAL ECG WHEN COMPARED WITH ECG OF 31-MAY-2016 23:04, NO SIGNIFICANT CHANGE WAS FOUND Confirmed by CHELLY RESENDIZ MD ([id number]) on 12/08/2019 11:31:18 AM Referred By: Confirmed By:CHELLY RESENDIZ MD
== END 2019-12-08 01:35 | disposition home or self-care (01) ==
LOC: JER 20:08
PROC: 3E033GC Introduction of Other Therapeutic Substance into Peripheral Vein, Percutaneous Approach (ICD-10-PCS; principal; 2019-12-07)
DX: R10.13 Epigastric pain (principal); N30.00 Acute cystitis without hematuria
CPT/HCPCS: 36415; 71046-TC-FY; 74177-TC; 76705-TC; 80053; 81003; 82550; 83690; 83735; 84484; 85025; 87086; 93005; 93010; 99285-25

== ENCOUNTER 2020-05-30 17:05 | Emergency (ER) | payer OTHER ==
[2020-05-30 17:29] VITALS: BP 141/79; PULSE 84; TEMP 98.3; BMI 24.7
== END 2020-05-30 20:39 | disposition home or self-care (01) ==
LOC: JER 17:05
DX: K11.23 Chronic sialoadenitis (principal)
CPT/HCPCS: 70490-TC; 99284-25

== ENCOUNTER 2020-06-01 16:56 | Emergency (ER) | payer OTHER ==
[2020-06-01 17:34] VITALS: BP 128/68; PULSE 82; TEMP 99.6; BMI 30.9
== END 2020-06-01 18:53 | disposition home or self-care (01) ==
LOC: JER 16:56
DX: U07.1 COVID-19 (principal); R50.9 Fever, unspecified
CPT/HCPCS: 99284-25; C9803; U0003

== ENCOUNTER 2020-06-02 22:36 | Emergency (ER) | payer OTHER ==
[2020-06-02 22:42] VITALS: BP 143/62; PULSE 88; BMI 24.7
[2020-06-02 22:46] VITALS: TEMP 97.5
[2020-06-03 01:08] LABS: EPI CELLS 34 /uL (0-25.1); HYALINE CASTS 36 /uL (0-3.1); PH,URINE 5.5 (5.0-8.0); URINE APPEARANCE CLOUDY; URINE BACTERIA 353 /uL (0-1359); URINE BILIRUBIN 1+ (NEGATIVE); URINE COLOR DK YELLOW; URINE GLUCOSE (UA) 2+ (NEGATIVE); URINE KETONE 1+ (NEGATIVE); URINE LEUK ESTERASE 1+ (NEGATIVE); URINE NITRITE NEGATIVE (NEGATIVE); URINE PROTEIN 2+ (NEGATIVE); URINE WBC 177 /uL (0-25.8)
[2020-06-03 01:20] LABS: BASO % 0.3 % (0-2.0); EOS % 0.2 % (0-4.5); HEMATOCRIT 40.4 % (32.4-45.2); LYMPH % 23.2 % (8-40); MCH 30.2 pg (25.7-33.7); MCHC 34.6 g/dl (32.0-36.0); MEAN CELL VOLUME 87.4 fl (80-96); MEAN PLT VOLUME 8.8 fl (7.5-11.1); MONO % 9.6 % (3.8-10.2); NEUT % 66.7 % (42.8-82.8); PLATELET COUNT 175 K/MM3 (134-434); RBC 4.63 M/mm3 (3.60-5.2); RDW 13.4 % (11.6-15.6); WHITE BLOOD COUNT 5.3 K/mm3 (4.0-10.0)
[2020-06-03 02:02] LABS: ALBUMIN 3.2 g/dl (3.4-5.0); BILIRUBIN,TOTAL 0.6 mg/dL (0.2-1); BLOOD UREA NITROGEN 13.9 mg/dL (7-18); CREATININE 0.6 mg/dL (0.55-1.3); TOT PROT 6.7 g/dl (6.4-8.2)
[2020-06-03] MEDS ORDERED: SULFAMETHOXAZOLE/TRIMETHOPRIM 800MG/160MG D.S. TABLET PO ONE (02:04)
[2020-06-03 02:20] LABS: POTASSIUM 2.9 mmol/L (3.5-5.1)
[2020-06-03 02:20] LABS: URINE RBC 29.9 /uL (0-23.9)
[2020-06-03] MEDS ORDERED: POTASSIUM CHLORIDE TABS 20 MEQ TABLET.ER (FP) PO ONE ×2 (02:23→02:30)
[2020-06-03] MEDS ORDERED: SULFAMETHOXAZOLE/TRIMETHOPRIM 800MG/160MG D.S. TABLET ONE (02:30)
== END 2020-06-03 02:48 | disposition home or self-care (01) ==
LOC: JER 22:36
DX: N39.0 Urinary tract infection, site not specified (principal)
CPT/HCPCS: 36415; 80053; 81003; 83605; 85025; 87086; 87186; 99285-25

== ENCOUNTER 2020-06-05 00:17 | Observation (INO) | payer OTHER ==
[2020-06-05 00:43] VITALS: BMI 30.9
[2020-06-05] MEDS ORDERED: LACTATED RINGERS SOLUTION 1000 ML INFUS.BAG IV ONE (03:09)
[2020-06-05 03:48] LABS: BASO % 0.3 % (0-2.0); EOS % 0.1 % (0-4.5); HEMATOCRIT 40.4 % (32.4-45.2); HEMOGLOBIN 14.2 GM/dL (10.7-15.3); LYMPH % 20.7 % (8-40); MCH 30.1 pg (25.7-33.7); MCHC 35.2 g/dl (32.0-36.0); MEAN CELL VOLUME 85.6 fl (80-96); MEAN PLT VOLUME 8.8 fl (7.5-11.1); MONO % 6.8 % (3.8-10.2); NEUT % 72.1 % (42.8-82.8); PLATELET COUNT 209 K/MM3 (134-434); RBC 4.72 M/mm3 (3.60-5.2); WHITE BLOOD COUNT 7.6 K/mm3 (4.0-10.0)
[2020-06-05 03:50] LABS: INR 1.21 (0.83-1.09); PROTHROMBIN TIME (PATIENT) 14.6 SEC (9.7-13.0)
[2020-06-05 03:53] LABS: ACTIVATED PTT 25.6 SECONDS (25.2-36.5)
[2020-06-05 04:05] LABS: POTASSIUM 3.3 mmol/L (3.5-5.1)
[2020-06-05 04:08] LABS: ALBUMIN 3.1 g/dl (3.4-5.0); BLOOD UREA NITROGEN 9.5 mg/dL (7-18); CALCIUM 8.3 mg/dL (8.5-10.1)
[2020-06-05 04:11] LABS: CREATININE 0.7 mg/dL (0.55-1.3)
[2020-06-05 04:13] LABS: BILIRUBIN,TOTAL 0.7 mg/dL (0.2-1)
[2020-06-05] MEDS ORDERED: POTASSIUM CHLORIDE TABS 20 MEQ TABLET.ER (FP) PO ONE ×3 (06:27→09:00)
[2020-06-05] MEDS ORDERED: ACETAMINOPHEN 325 MG TABLET (FP) PO PRN (07:15)
[2020-06-05] MEDS ORDERED: HEPARIN NA (PORCINE) 5,000 UNITS/ML 1ML VIAL SQ SCH (07:30)
[2020-06-05 08:29] VITALS: BP 134/61; PULSE 70; TEMP 100.4
== END 2020-06-05 09:30 | disposition home or self-care (01) ==
LOC: JER 00:17 → JERBED 06:55
PROVIDERS: ADMIT Internal Medicine; ATTEND Internal Medicine
PROC: 3E0337Z Introduction of Electrolytic and Water Balance Substance into Peripheral Vein, Percutaneous Approach (ICD-10-PCS; principal; 2020-06-05)
DX: K59.00 Constipation, unspecified (principal); I10 Essential (primary) hypertension; K21.9 Gastro-esophageal reflux disease without esophagitis; M19.90 Unspecified osteoarthritis, unspecified site; R94.31 Abnormal electrocardiogram [ECG] [EKG]; Z88.0 Allergy status to penicillin
CPT/HCPCS: 36415; 71045-TC-FY; 74177-TC; 80053; 80061; 82550; 82553; 83605; 83690; 83721; 84484; 85025; 85610; 85730; 87040; 93005; 93010; 96360; 99285-25; G0378

== ENCOUNTER 2020-08-04 21:45 | Emergency (ER) | payer OTHER ==
[2020-08-04 21:53] VITALS: TEMP 98.5; BMI 29.2
[2020-08-04 22:55] LABS: BASO % 0.4 % (0-2.0); EOS % 3.5 % (0-4.5); HEMATOCRIT 41.5 % (32.4-45.2); HEMOGLOBIN 14.4 GM/dL (10.7-15.3); LYMPH % 21.4 % (8-40); MCH 30.6 pg (25.7-33.7); MCHC 34.7 g/dl (32.0-36.0); MEAN CELL VOLUME 88.4 fl (80-96); MEAN PLT VOLUME 7.8 fl (7.5-11.1); MONO % 8.6 % (3.8-10.2); NEUT % 66.1 % (42.8-82.8); PLATELET COUNT 240 K/MM3 (134-434); RBC 4.69 M/mm3 (3.60-5.2); WHITE BLOOD COUNT 6.4 K/mm3 (4.0-10.0)
[2020-08-04 23:05] VITALS: BP 156/70; PULSE 80
[2020-08-04 23:15] LABS: POTASSIUM 3.5 mmol/L (3.5-5.1)
[2020-08-04 23:17] LABS: CALCIUM 9.2 mg/dL (8.5-10.1)
[2020-08-04 23:18] LABS: ALBUMIN 3.5 g/dl (3.4-5.0); BLOOD UREA NITROGEN 11.2 mg/dL (7-18)
[2020-08-04 23:21] LABS: CREATININE 0.6 mg/dL (0.55-1.3)
[2020-08-04 23:22] LABS: BILIRUBIN,TOTAL 0.4 mg/dL (0.2-1)
[2020-08-04 23:53] LABS: URINE APPEARANCE CLEAR; URINE BILIRUBIN NEGATIVE (NEGATIVE); URINE COLOR YELLOW; URINE GLUCOSE (UA) 3+ (NEGATIVE); URINE KETONE TRACE (NEGATIVE); URINE LEUK ESTERASE NEGATIVE (NEGATIVE); URINE NITRITE NEGATIVE (NEGATIVE); URINE PROTEIN TRACE (NEGATIVE); URINE UROBILINOGEN 0.2 mg/dL (0.2-1.0)
== END 2020-08-05 00:24 | disposition home or self-care (01) ==
LOC: JER 21:45
DX: E11.9 Type 2 diabetes mellitus without complications (principal)
CPT/HCPCS: 36415; 71045-TC-FY; 80053; 81003; 82962; 84443; 84484; 85025; 93005; 93010; 99285-25

== ENCOUNTER 2020-09-23 07:27 | Emergency (ER) | payer OTHER ==
[2020-09-23 07:39] VITALS: BMI 27.3
[2020-09-23 09:08] LABS: CALCIUM 8.6 mg/dL (8.5-10.1)
[2020-09-23 09:09] LABS: ALBUMIN 3.4 g/dl (3.4-5.0); BLOOD UREA NITROGEN 11.8 mg/dL (7-18)
[2020-09-23 09:12] LABS: CREATININE 0.5 mg/dL (0.55-1.3)
[2020-09-23] MEDS ORDERED: POTASSIUM CHLORIDE ORAL LIQUID 20 MEQ/15 ML PO STA (09:12)
[2020-09-23 09:13] LABS: BILIRUBIN,TOTAL 0.5 mg/dL (0.2-1); TOT PROT 6.5 g/dl (6.4-8.2)
[2020-09-23 09:23] LABS: BASO % 1.3 % (0-2.0); EOS % 3.4 % (0-4.5); HEMATOCRIT 40.2 % (32.4-45.2); HEMOGLOBIN 14.3 GM/dL (10.7-15.3); LYMPH % 20.7 % (8-40); MCH 31.2 pg (25.7-33.7); MCHC 35.6 g/dl (32.0-36.0); MEAN CELL VOLUME 87.7 fl (80-96); MEAN PLT VOLUME 7.8 fl (7.5-11.1); MONO % 7.7 % (3.8-10.2); NEUT % 66.9 % (42.8-82.8); PLATELET COUNT 208 K/MM3 (134-434); RBC 4.58 M/mm3 (3.60-5.2); RDW 12.8 % (11.6-15.6); WHITE BLOOD COUNT 6.6 K/mm3 (4.0-10.0)
[2020-09-23] MEDS ORDERED: POTASSIUM CHLORIDE ORAL LIQUID 20 MEQ/15 ML ONE (09:52)
[2020-09-23 10:25] VITALS: BP 155/75; PULSE 78; TEMP 98.5
== END 2020-09-23 10:37 | disposition home or self-care (01) ==
LOC: JER 07:27
DX: E11.65 Type 2 diabetes mellitus with hyperglycemia (principal)
CPT/HCPCS: 36415; 80053; 80061; 82962; 83036; 83721; 85025; 93005; 93010; 99284-25

== ENCOUNTER 2020-10-02 19:51 | Emergency (ER) | payer OTHER ==
[2020-10-02 20:02] VITALS: TEMP 98.3; BMI 27.3
[2020-10-02] MEDS ORDERED: FAMOTIDINE 20 MG/50 ML IVPB 20 MG/50 ML MG IVPB ONE ×2 (20:27→21:10)
[2020-10-02] MEDS ORDERED: ACETAMINOPHEN 1000 MG/100 ML VIAL (NON FORMULARY) IVPB ONE (20:27)
[2020-10-02] MEDS ORDERED: LIDOCAINE VISCOUS 2% ORAL/TOP 20 ML UNIT-DOSE CUP MM ONE (20:28)
[2020-10-02] MEDS ORDERED: MAG HYDROX/AL HYDROX/SIMETH 30 ML UNIT-DOSE CUP PO ONE (20:28)
[2020-10-02] MEDS ORDERED: LIDOCAINE VISCOUS 2% ORAL/TOP 20 ML UNIT-DOSE CUP ONE (21:09)
[2020-10-02] MEDS ORDERED: ACETAMINOPHEN INJECTION 100 ML IVPB ONE ×3 (21:10→22:41)
[2020-10-02] MEDS ORDERED: MAG HYDROX/AL HYDROX/SIMETH 30 ML UNIT-DOSE CUP ONE (21:10)
[2020-10-02 21:24] LABS: EPI CELLS 5 /uL (0-25.1); HYALINE CASTS 4 /uL (0-3.1); PH,URINE 5.5 (5.0-8.0); URINE APPEARANCE CLEAR; URINE BACTERIA 156 /uL (0-1359); URINE BILIRUBIN NEGATIVE (NEGATIVE); URINE COLOR YELLOW; URINE GLUCOSE (UA) 3+ (NEGATIVE); URINE KETONE NEGATIVE (NEGATIVE); URINE LEUK ESTERASE TRACE (NEGATIVE); URINE NITRITE NEGATIVE (NEGATIVE); URINE PROTEIN TRACE (NEGATIVE); URINE RBC 9 /uL (0-23.9); URINE UROBILINOGEN 0.2 mg/dL (0.2-1.0); URINE WBC 241 /uL (0-25.8)
[2020-10-02 21:24] LABS: BASO % 1.2 % (0-2.0); EOS % 2.7 % (0-4.5); HEMATOCRIT 42.4 % (32.4-45.2); HEMOGLOBIN 14.7 GM/dL (10.7-15.3); LYMPH % 21.7 % (8-40); MCH 30.3 pg (25.7-33.7); MCHC 34.6 g/dl (32.0-36.0); MEAN CELL VOLUME 87.4 fl (80-96); MEAN PLT VOLUME 7.9 fl (7.5-11.1); MONO % 8.5 % (3.8-10.2); NEUT % 65.9 % (42.8-82.8); PLATELET COUNT 225 K/MM3 (134-434); RBC 4.84 M/mm3 (3.60-5.2); RDW 13.5 % (11.6-15.6); WHITE BLOOD COUNT 6.3 K/mm3 (4.0-10.0)
[2020-10-02 21:28] LABS: INR 0.99 (0.83-1.09)
[2020-10-02 21:48] LABS: ALBUMIN 3.6 g/dl (3.4-5.0)
[2020-10-02 21:49] LABS: CALCIUM 8.8 mg/dL (8.5-10.1)
[2020-10-02 21:53] LABS: CREATININE 0.5 mg/dL (0.55-1.3)
[2020-10-02 21:54] LABS: BILIRUBIN,TOTAL 0.5 mg/dL (0.2-1); TOT PROT 6.9 g/dl (6.4-8.2)
[2020-10-03 00:10] VITALS: BP 178/90; PULSE 76
== END 2020-10-03 00:45 | disposition left against medical advice (07) ==
LOC: JER 19:51
PROC: 3E0333Z Introduction of Anti-inflammatory into Peripheral Vein, Percutaneous Approach (ICD-10-PCS; principal; 2020-10-02)
PROC: 3E033GC Introduction of Other Therapeutic Substance into Peripheral Vein, Percutaneous Approach (ICD-10-PCS; 2020-10-02)
DX: R10.9 Unspecified abdominal pain (principal)
CPT/HCPCS: 36415; 74177-TC; 76705-TC; 80053; 81003; 82550; 83605; 83690; 84484; 85025; 85610; 85730; 87086; 93005; 93010; 99284-25; J0131; Q9967

== ENCOUNTER 2021-04-15 23:10 | Emergency (ER) | payer OTHER ==
[2021-04-15 23:27] VITALS: BP 172/87; PULSE 96; TEMP 98.8; BMI 32.2
== END 2021-04-16 01:02 | disposition home or self-care (01) ==
LOC: JER 23:10
DX: R73.9 Hyperglycemia, unspecified (principal)
CPT/HCPCS: 99283-25

== ENCOUNTER 2022-01-16 10:58 | Inpatient (IN) | payer OTHER ==
[2022-01-16 14:51] LABS: BASO % 1.2 % (0-2.0); EOS % 1.8 % (0-4.5); HEMATOCRIT 43.6 % (32.4-45.2); HEMOGLOBIN 14.8 GM/dL (10.7-15.3); LYMPH % 17.2 % (8-40); MCH 29.7 pg (25.7-33.7); MEAN CELL VOLUME 87.3 fl (80-96); MEAN PLT VOLUME 7.4 fl (7.5-11.1); MONO % 6.8 % (3.8-10.2); PLATELET COUNT 258 10^3/uL (134-434); RBC 4.99 M/mm3 (3.60-5.2); RDW 13.5 % (11.6-15.6); WHITE BLOOD COUNT 6.4 K/mm3 (4.0-10.0)
[2022-01-16 15:07] LABS: INR 1.1 (0.83-1.09); PROTHROMBIN TIME (PATIENT) 12.7 SEC (9.7-13.0)
[2022-01-16 15:10] LABS: ACTIVATED PTT 24.9 SECONDS (25.2-36.5)
[2022-01-16] MEDS ORDERED: SODIUM CHLORIDE 1,000 ML IV SCH (15:15)
[2022-01-16 15:23] LABS: CALCIUM 9.4 mg/dL (8.5-10.1)
[2022-01-16 15:24] LABS: ALBUMIN 3.5 g/dl (3.4-5.0); BLOOD UREA NITROGEN 12.4 mg/dL (7-18)
[2022-01-16 15:27] LABS: CREATININE 0.5 mg/dL (0.55-1.3)
[2022-01-16 15:29] LABS: BILIRUBIN,TOTAL 0.8 mg/dL (0.2-1)
[2022-01-16] MEDS: INSULIN SLIDING SCALE (NOVOLOG) 1 VIAL SQ SCH (17:18)
[2022-01-16 20:18] LABS: EPI CELLS 7 /uL (0-25.1); HYALINE CASTS 1 /uL (0-3.1); PH,URINE 5.5 (5.0-8.0); URINE APPEARANCE CLEAR; URINE BACTERIA 228 /uL (0-1359); URINE BILIRUBIN NEGATIVE (NEGATIVE); URINE COLOR YELLOW; URINE GLUCOSE (UA) 3+ (NEGATIVE); URINE KETONE NEGATIVE (NEGATIVE); URINE LEUK ESTERASE 1+ (NEGATIVE); URINE NITRITE NEGATIVE (NEGATIVE); URINE PROTEIN NEGATIVE (NEGATIVE); URINE RBC 3 /uL (0-23.9); URINE UROBILINOGEN 0.2 mg/dL (0.2-1.0); URINE WBC 288 /uL (0-25.8)
[2022-01-17 00:07] VITALS: BMI 28.6
[2022-01-17] MEDS: INSULIN SLIDING SCALE (NOVOLOG) 1 VIAL SQ SCH ×3 (06:32→18:14)
[2022-01-17 09:13] LABS: INR 1.16 (0.83-1.09); PROTHROMBIN TIME (PATIENT) 13.4 SEC (9.7-13.0)
[2022-01-17 09:14] LABS: ACTIVATED PTT 26.4 SECONDS (25.2-36.5)
[2022-01-17 09:21] LABS: BASO % 1.2 % (0-2.0); EOS % 5.7 % (0-4.5); HEMATOCRIT 42.2 % (32.4-45.2); HEMOGLOBIN 14.5 GM/dL (10.7-15.3); LYMPH % 21.4 % (8-40); MCH 29.8 pg (25.7-33.7); MCHC 34.3 g/dl (32.0-36.0); MEAN CELL VOLUME 86.9 fl (80-96); MEAN PLT VOLUME 7.4 fl (7.5-11.1); MONO % 9.5 % (3.8-10.2); NEUT % 62.2 % (42.8-82.8); PLATELET COUNT 259 10^3/uL (134-434); RBC 4.85 M/mm3 (3.60-5.2); RDW 13.4 % (11.6-15.6); WHITE BLOOD COUNT 5.8 K/mm3 (4.0-10.0)
[2022-01-17] MEDS ORDERED: POTASSIUM CHLORIDE TABS 20 MEQ TABLET.ER (FP) PO ONE (09:28)
[2022-01-17 09:31] LABS: ALBUMIN 3.2 g/dl (3.4-5.0); BLOOD UREA NITROGEN 8.6 mg/dL (7-18); CALCIUM 8.6 mg/dL (8.5-10.1)
[2022-01-17 09:35] LABS: CREATININE 0.4 mg/dL (0.55-1.3)
[2022-01-17 09:36] LABS: TOT PROT 6.4 g/dl (6.4-8.2)
[2022-01-17] MEDS ORDERED: amLODIPine BESYLATE 5 MG TABLET (FP) PO SCH (10:00)
[2022-01-17] MEDS ORDERED: ceFAZolin SODIUM 1 GM VIAL IVPB ONE ×2 (13:45→15:45)
[2022-01-17] MEDS ORDERED: LIDOCAINE HCL 1%, 10 MG/ML (20ML VIAL) INF ONE ×3 (13:51→15:51)
[2022-01-17] MEDS ORDERED: LIDOCAINE HCL 1%, 10 MG/ML (20ML VIAL) ONE (14:47)
[2022-01-17] MEDS ORDERED: HEPARIN NA (PORCINE) 5,000 UNITS/ML 1ML VIAL ONE (14:47)
[2022-01-17] MEDS ORDERED: ONDANSETRON 4 MG/2 ML VIAL IVPUSH PRN ×2 (14:49→17:18)
[2022-01-17] MEDS ORDERED: LACTATED RINGERS SOLUTION 1,000 ML IV SCH (15:00)
[2022-01-17] MEDS ORDERED: MIDAZOLAM HCL 2 MG/2 ML SINGLE DOSE VIAL ONE (15:13)
[2022-01-17] MEDS ORDERED: PROPOFOL 40 ML ONE (15:14)
[2022-01-17] MEDS ORDERED: ceFAZolin SODIUM 1 GM VIAL ONE (15:40)
[2022-01-17] MEDS ORDERED: LABETALOL HCL 5 MG/1 ML (100MG/20 ML VIAL) ONE (16:13)
[2022-01-17] MEDS ORDERED: ONDANSETRON 4 MG/2 ML VIAL ONE (16:21)
[2022-01-17] MEDS ORDERED: CLOPIDOGREL BISULFATE 75 MG TABLET (FP) ONE (17:20)
[2022-01-17] MEDS: CLOPIDOGREL BISULFATE 75 MG TABLET (FP) PO SCH (18:10)
[2022-01-17 18:13] VITALS: RESP 18
[2022-01-17] MEDS ORDERED: INSULIN (NOVOLOG) ASPART 100 UNITS/ML 10ML VIAL SQ ONE (22:13)
[2022-01-18] MEDS: INSULIN SLIDING SCALE (NOVOLOG) 1 VIAL SQ SCH ×2 (06:53→11:54)
[2022-01-18 07:18] VITALS: BP 150/75; PULSE 80; TEMP 98.4
[2022-01-18] MEDS ORDERED: amLODIPine BESYLATE 5 MG TABLET (FP) PO SCH (10:00)
[2022-01-18] MEDS: CLOPIDOGREL BISULFATE 75 MG TABLET (FP) PO SCH (11:51)
== END 2022-01-18 12:30 | disposition home or self-care (01) | DRG 272 ==
LOC: JER 10:58 → JERBED 13:52 → J7W 21:15
PROVIDERS: ADMIT Internal Medicine; ATTEND Nurse Practitioner Acute Care
PROC: 047L3Z1 Dilation of Left Femoral Artery using Drug-Coated Balloon, Percutaneous Approach (ICD-10-PCS; 2022-01-17)
PROC: 047U3ZZ Dilation of Left Peroneal Artery, Percutaneous Approach (ICD-10-PCS; 2022-01-17)
PROC: B41DZZZ Fluoroscopy of Aorta and Bilateral Lower Extremity Arteries (ICD-10-PCS; 2022-01-17)
PROC: 3E05317 Introduction of Other Thrombolytic into Peripheral Artery, Percutaneous Approach (ICD-10-PCS; 2022-01-17)
PROC: 04CL3ZZ Extirpation of Matter from Left Femoral Artery, Percutaneous Approach (ICD-10-PCS; principal; 2022-01-17 15:51)
DX: E11.51 Type 2 diabetes mellitus with diabetic peripheral angiopathy without gangrene (principal); I10 Essential (primary) hypertension
CPT/HCPCS: 36415; 73630-TC-LT; 76000-TC-FY; 80053; 81003; 82962; 83735; 84100; 85025; 85610; 85730; 86850; 86900; 86901; 87077; 87086; 93005; 93010; 93922; 93925-TC; 94760; 99285-25; C2623; C9803-CS; G0463-25; J1644; U0003; U0005

== ENCOUNTER 2022-02-14 17:24 | Inpatient (IN) | payer OTHER ==
[2022-02-14] MEDS ORDERED: VANCOMYCIN 1 GM in D5W (PRE-DOCKED) 1,000 MG/250 ML IVPB ONE (19:23)
[2022-02-14] MEDS ORDERED: AZTREONAM 2 GM in DEXTROSE 5%-WATER 100 ML IVPB ONE (19:28)
[2022-02-14] MEDS ORDERED: VANCOMYCIN/WATER FOR INJ (PEG) 1,000 MG/200 ML BAG IVPB ONE (19:40)
[2022-02-14 19:43] LABS: BASO % 1.4 % (0-2.0); EOS % 6.6 % (0-4.5); HEMATOCRIT 43.1 % (32.4-45.2); HEMOGLOBIN 14.3 GM/dL (10.7-15.3); LYMPH % 16.7 % (8-40); MCH 29.2 pg (25.7-33.7); MCHC 33.3 g/dl (32.0-36.0); MEAN CELL VOLUME 87.8 fl (80-96); MEAN PLT VOLUME 7.4 fl (7.5-11.1); MONO % 8.8 % (3.8-10.2); NEUT % 66.5 % (42.8-82.8); PLATELET COUNT 304 10^3/uL (134-434); RBC 4.91 M/mm3 (3.60-5.2); RDW 13.4 % (11.6-15.6); WHITE BLOOD COUNT 7.2 K/mm3 (4.0-10.0)
[2022-02-14 20:03] LABS: ALBUMIN 3.4 g/dl (3.4-5.0); CALCIUM 9.5 mg/dL (8.5-10.1)
[2022-02-14 20:05] LABS: BLOOD UREA NITROGEN 12.6 mg/dL (7-18)
[2022-02-14 20:08] LABS: BILIRUBIN,TOTAL 0.5 mg/dL (0.2-1); CREATININE 0.6 mg/dL (0.55-1.3)
[2022-02-14] MEDS ORDERED: AZTREONAM 2 GM VIAL (RESTRICTED TO ID) ONE (21:05)
[2022-02-15 04:01] VITALS: BMI 28.1
[2022-02-15] MEDS: NYSTATIN 100,000 UNIT/GM TOPICAL CREAM 15 GM TUBE TP SCH ×3 (05:51→21:47)
[2022-02-15] MEDS: INSULIN SLIDING SCALE (NOVOLOG) 1 VIAL SQ SCH ×4 (06:46→21:47)
[2022-02-15] MEDS ORDERED: INSULIN SLIDING SCALE (NOVOLOG) 1 VIAL SQ SCH (07:00)
[2022-02-15 09:24] LABS: HEMATOCRIT 40.3 % (32.4-45.2); HEMOGLOBIN 13.4 GM/dL (10.7-15.3); MCH 29.2 pg (25.7-33.7); MCHC 33.3 g/dl (32.0-36.0); MEAN CELL VOLUME 87.6 fl (80-96); MEAN PLT VOLUME 7.8 fl (7.5-11.1); PLATELET COUNT 276 10^3/uL (134-434); RDW 13.7 % (11.6-15.6); WHITE BLOOD COUNT 5.8 K/mm3 (4.0-10.0)
[2022-02-15 09:30] LABS: INR 1.19 (0.83-1.09); PROTHROMBIN TIME (PATIENT) 13.7 SEC (9.7-13.0)
[2022-02-15 09:32] LABS: ACTIVATED PTT 27.5 SECONDS (25.2-36.5)
[2022-02-15 09:49] LABS: ALBUMIN 2.9 g/dl (3.4-5.0); BLOOD UREA NITROGEN 10.4 mg/dL (7-18); CALCIUM 8.7 mg/dL (8.5-10.1); MAGNESIUM 2.1 mg/dL (1.8-2.4)
[2022-02-15] MEDS: amLODIPine BESYLATE 5 MG TABLET (FP) PO SCH (09:49)
[2022-02-15] MEDS: CLOPIDOGREL BISULFATE 75 MG TABLET (FP) PO SCH (09:49)
[2022-02-15] MEDS: ENOXAPARIN NA (PORCINE) 40 MG/0.4 ML DISP.SYRIN SQ SCH (09:49)
[2022-02-15 09:51] VITALS: RESP 18
[2022-02-15 09:52] LABS: CREATININE 0.5 mg/dL (0.55-1.3); PHOSPHOROUS 3.3 mg/dL (2.5-4.9)
[2022-02-15 09:53] LABS: BILIRUBIN,TOTAL 0.8 mg/dL (0.2-1)
[2022-02-15] MEDS ORDERED: PATIENT'S OWN MEDICATION (NON-FORMULARY) (Dapagliflozin Propanediol [Farxiga] 5 MG Tablet) PO SCH (10:00)
[2022-02-15] MEDS ORDERED: CLINDAMYCIN 600MG PREMIX IVPB 600 MG/50 ML BAG IVPB SCH (10:00)
[2022-02-15] MEDS: SILVER SULFADIAZINE 1% TOP CREAM 50 GM JAR TP SCH (10:03)
[2022-02-15] MEDS: VANCOMYCIN/WATER FOR INJ (PEG) 1,000 MG/200 ML BAG IVPB SCH (15:30)
[2022-02-16] MEDS: VANCOMYCIN/WATER FOR INJ (PEG) 1,000 MG/200 ML BAG IVPB SCH ×2 (02:03→14:56)
[2022-02-16] MEDS: INSULIN SLIDING SCALE (NOVOLOG) 1 VIAL SQ SCH ×4 (06:17→22:01)
[2022-02-16] MEDS: CLOPIDOGREL BISULFATE 75 MG TABLET (FP) PO SCH (10:04)
[2022-02-16] MEDS: ENOXAPARIN NA (PORCINE) 40 MG/0.4 ML DISP.SYRIN SQ SCH (10:04)
[2022-02-16] MEDS: amLODIPine BESYLATE 5 MG TABLET (FP) PO SCH (10:04)
[2022-02-16] MEDS: NYSTATIN 100,000 UNIT/GM TOPICAL CREAM 15 GM TUBE TP SCH ×2 (10:05→22:01)
[2022-02-16] MEDS: SILVER SULFADIAZINE 1% TOP CREAM 50 GM JAR TP SCH (10:05)
[2022-02-16 13:13] LABS: BASO % 1.2 % (0-2.0); EOS % 7.7 % (0-4.5); HEMATOCRIT 43.1 % (32.4-45.2); HEMOGLOBIN 14.5 GM/dL (10.7-15.3); LYMPH % 18.4 % (8-40); MCH 29.6 pg (25.7-33.7); MCHC 33.6 g/dl (32.0-36.0); MEAN CELL VOLUME 87.9 fl (80-96); MEAN PLT VOLUME 7.3 fl (7.5-11.1); MONO % 7.4 % (3.8-10.2); NEUT % 65.3 % (42.8-82.8); PLATELET COUNT 272 10^3/uL (134-434); RDW 13.6 % (11.6-15.6); WHITE BLOOD COUNT 6.6 K/mm3 (4.0-10.0)
[2022-02-16 13:49] LABS: CALCIUM 8.8 mg/dL (8.5-10.1)
[2022-02-16 13:51] LABS: ALBUMIN 3.1 g/dl (3.4-5.0); BLOOD UREA NITROGEN 11.2 mg/dL (7-18)
[2022-02-16 13:52] LABS: CREATININE 0.5 mg/dL (0.55-1.3)
[2022-02-16 13:54] LABS: BILIRUBIN,TOTAL 0.5 mg/dL (0.2-1); TOT PROT 6.5 g/dl (6.4-8.2)
[2022-02-16 14:00] LABS: ERYTHROCYTE SEDIMENTATION RATE 8 mm/hr (0-30)
[2022-02-16] MEDS ORDERED: INSULIN (NOVOLOG MIX 70/30) 100 UNITS/ML MDV SQ ONE (21:14)
[2022-02-17] MEDS ORDERED: VANCOMYCIN/WATER 1250 MG 1,250 MG/250 ML BAG IVPB SCH (03:00)
[2022-02-17] MEDS: INSULIN SLIDING SCALE (NOVOLOG) 1 VIAL SQ SCH ×2 (06:05→11:17)
[2022-02-17 09:20] LABS: EOS % 6.3 % (0-4.5); HEMATOCRIT 43.6 % (32.4-45.2); HEMOGLOBIN 15.1 GM/dL (10.7-15.3); LYMPH % 12.6 % (8-40); MCH 30.4 pg (25.7-33.7); MCHC 34.7 g/dl (32.0-36.0); MEAN CELL VOLUME 87.4 fl (80-96); MEAN PLT VOLUME 7.3 fl (7.5-11.1); MONO % 7.2 % (3.8-10.2); NEUT % 72.9 % (42.8-82.8); PLATELET COUNT 269 10^3/uL (134-434); RBC 4.99 M/mm3 (3.60-5.2); RDW 13.3 % (11.6-15.6); WHITE BLOOD COUNT 7.8 K/mm3 (4.0-10.0)
[2022-02-17] MEDS: ENOXAPARIN NA (PORCINE) 40 MG/0.4 ML DISP.SYRIN SQ SCH (09:40)
[2022-02-17] MEDS: amLODIPine BESYLATE 5 MG TABLET (FP) PO SCH (09:40)
[2022-02-17] MEDS: CLOPIDOGREL BISULFATE 75 MG TABLET (FP) PO SCH (09:40)
[2022-02-17] MEDS: SILVER SULFADIAZINE 1% TOP CREAM 50 GM JAR TP SCH (09:42)
[2022-02-17] MEDS: NYSTATIN 100,000 UNIT/GM TOPICAL CREAM 15 GM TUBE TP SCH (09:42)
[2022-02-17 09:53] LABS: ALBUMIN 3.3 g/dl (3.4-5.0)
[2022-02-17 09:54] LABS: BLOOD UREA NITROGEN 9.6 mg/dL (7-18)
[2022-02-17 09:55] LABS: CALCIUM 8.9 mg/dL (8.5-10.1); PHOSPHOROUS 2.7 mg/dL (2.5-4.9)
[2022-02-17 09:56] LABS: CREATININE 0.4 mg/dL (0.55-1.3); MAGNESIUM 2.1 mg/dL (1.8-2.4); TOT PROT 6.9 g/dl (6.4-8.2)
[2022-02-17] MEDS ORDERED: GLYCERIN 1 RECTAL SUPPOSITORY, ADULT RC ONE (10:27)
[2022-02-17 13:44] VITALS: BP 138/68; PULSE 77; TEMP 98.9
== END 2022-02-17 15:06 | disposition home health service (06) | DRG 603 ==
LOC: JER 17:24 → JERBED 22:23 → J7W 02-15 02:07
PROVIDERS: ADMIT Internal Medicine; ATTEND Internal Medicine
DX: L03.115 Cellulitis of right lower limb (principal); E11.51 Type 2 diabetes mellitus with diabetic peripheral angiopathy without gangrene; Z86.16 Personal history of COVID-19; I87.2 Venous insufficiency (chronic) (peripheral); Z79.84 Long term (current) use of oral hypoglycemic drugs; Z88.0 Allergy status to penicillin; L60.0 Ingrowing nail
CPT/HCPCS: 0241U-QW; 36415; 73590-TC-RT-FY; 73630-TC-LT; 73630-TC-RT-FY; 80053; 82962; 83735; 84100; 85025; 85027; 85610; 85651; 85730; 86140; 86850; 86900; 86901; 87040; 87081; 93005; 93010; 93971-TC; 97116-GP; 97161-GP; 99285-25; A6022; G0463-25; G0480

== ENCOUNTER 2024-11-28 11:35 | Inpatient (IN) | payer OTHER ==
[2024-11-28 14:03] LABS: MCHC 32.3 g/dl (32.2-35.5); MEAN CELL VOLUME 85.7 fl (79.4-94.8); MEAN PLT VOLUME 9.2 fl (9.4-12.3); RDW 13.6 % (12.5-17.0)
[2024-11-28 14:32] LABS: CO2 26 mmol/L (21-32); GLUCOSE,RANDOM 157 mg/dL (74-106)
[2024-11-28 14:35] LABS: CREATININE 0.5 mg/dL (0.55-1.3); SGOT/AST 6 U/L (15-37); SGPT/ALT 16 U/L (13-61)
[2024-11-28 14:37] LABS: TOT PROT 7.4 g/dl (6.4-8.2)
[2024-11-28 14:38] LABS: ALK PHOS 101 U/L (45-117)
[2024-11-28 14:46] LABS: ERYTHROCYTE SEDIMENTATION RATE 12 mm/hr (0-30)
[2024-11-28] MEDS ORDERED: MEROPENEM 1 GM VIAL (RESTRICTED TO ID) IVPB ONE (15:47)
[2024-11-28] MEDS: MEROPENEM 1 GM in DEXTROSE 5%-WATER 100 ML IVPB ONE (15:51)
[2024-11-28] MEDS: MEROPENEM 500 MG in DEXTROSE 5%-WATER 100 ML IVPB ONE (16:09)
[2024-11-28] MEDS: VANCOMYCIN 1,000 MG in DEXTROSE 5%-WATER - 250 ML IVPB ONE (16:37)
[2024-11-28 18:10] LABS: HIV INTERPRETATION NEGATIVE (NEGATIVE)
[2024-11-28 18:14] LABS: HCV DIAGNOSTIC IN-HOUSE W/RFLX NON-REACTIVE (NONREACTIVE)
[2024-11-28] MEDS ORDERED: DOCUSATE SODIUM 100 MG CAPSULE (FP) PO PRN (20:36)
[2024-11-28] MEDS ORDERED: ACETAMINOPHEN 325 MG TABLET (FP) PO PRN (20:36)
[2024-11-28] MEDS: INSULIN ASPART SLIDING SCALE (NOVOLOG) 1 VIAL SQ SCH (22:00)
[2024-11-28] MEDS: LORazepam 4 MG/1 ML VIAL IVPUSH ONE (22:49)
[2024-11-29] MEDS: LORazepam 4 MG/1 ML VIAL IVPUSH ONE (02:13)
[2024-11-29] MEDS: MEROPENEM 1 GM in DEXTROSE 5%-WATER 100 ML IVPB SCH ×3 (03:06→19:39)
[2024-11-29 09:00] LABS: ABSOLUTE IMMATURE GRANULOCYTES 0.02 x10^3/uL (0.0-0.031); BASOPHILS # 0.07 x10^3/uL (0.01-0.08); EOSINOPHIL % 4.7 % (0.7-5.8); EOSINOPHILS # 0.34 x10^3/uL (0.04-0.36); MCHC 31.6 g/dl (32.2-35.5); MEAN CELL VOLUME 85.4 fl (79.4-94.8); MEAN PLT VOLUME 9.7 fl (9.4-12.3); MONOCYTE # 0.60 x10^3/uL (0.24-0.86); MONOCYTE % 8.3 % (4.7-12.5); RDW 13.7 % (12.5-17.0)
[2024-11-29 09:08] LABS: INR 1.19 (0.83-1.09); PROTHROMBIN TIME (PATIENT) 13.0 SEC (9.7-13.0)
[2024-11-29 09:11] LABS: ACTIVATED PTT 27.8 SECONDS (25.2-36.5)
[2024-11-29 09:44] LABS: CO2 27.0 mmol/L (21-32)
[2024-11-29 09:45] LABS: GLUCOSE,RANDOM 178.0 mg/dL (74-106)
[2024-11-29 09:47] LABS: CREATININE 0.4 mg/dL (0.55-1.3)
[2024-11-29 15:33] VITALS: BMI 24.5
[2024-11-29] MEDS: HEPARIN NA (PORCINE) 5,000 UNITS/ML 1ML VIAL SQ SCH (22:09)
[2024-11-30 08:59] LABS: ABSOLUTE IMMATURE GRANULOCYTES 0.01 x10^3/uL (0.0-0.031); BASOPHILS # 0.06 x10^3/uL (0.01-0.08); EOSINOPHIL % 7.8 % (0.7-5.8); EOSINOPHILS # 0.47 x10^3/uL (0.04-0.36); MCHC 31.7 g/dl (32.2-35.5); MEAN CELL VOLUME 86.0 fl (79.4-94.8); MEAN PLT VOLUME 9.6 fl (9.4-12.3); MONOCYTE # 0.61 x10^3/uL (0.24-0.86); MONOCYTE % 10.1 % (4.7-12.5); RDW 13.8 % (12.5-17.0)
[2024-11-30 09:36] LABS: CO2 29.0 mmol/L (21-32); GLUCOSE,RANDOM 153.0 mg/dL (74-106)
[2024-11-30 09:39] LABS: CREATININE 0.3 mg/dL (0.55-1.3); SGOT/AST 5.0 U/L (15-37); SGPT/ALT 13.0 U/L (13-61)
[2024-11-30 09:41] LABS: TOT PROT 6.2 g/dl (6.4-8.2)
[2024-11-30 09:42] LABS: ALK PHOS 81.0 U/L (45-117)
[2024-11-30 14:21] VITALS: RESP 18
[2024-11-30 20:36] VITALS: BP 169/87; PULSE 87; TEMP 98.2
== END 2024-11-30 20:46 | disposition home health service (06) | DRG 594 ==
LOC: JER 11:35 → JERBED 14:55 → J8W 11-29 00:12
PROVIDERS: ADMIT Internal Medicine; ATTEND Internal Medicine
DX: L89.223 Pressure ulcer of left hip, stage 3 (principal); E11.621 Type 2 diabetes mellitus with foot ulcer; I10 Essential (primary) hypertension; E03.9 Hypothyroidism, unspecified; E11.51 Type 2 diabetes mellitus with diabetic peripheral angiopathy without gangrene
CPT/HCPCS: 36415; 80048; 80053; 82962; 83735; 84100; 85025; 85027; 85610; 85651; 85730; 86140; 86803; 87070; 87077; 87205; 87389; 99285-25